=== PATIENT | male | born 1955 | race Caucasian/White ===

== ENCOUNTER 2019-04-18 09:50 | Day surgery (SDC) | payer OTHER ==
--- OUTSIDE RECORDS SUMMARY | 2019-04-18 10:01 | XMS REPORT ---
:1955 Author Organization [facility] Address [address] [place] [address] Care Team Providers Name Role Phone Unavailable Unavailable Unavailable Payers Payer Name Policy Type Policy Number Effective Date Expiration Date Problems This patient has no known problems. Allergies, Adverse Reactions, Alerts Allergy Allergy Status Severity Reaction(s) Onset Inactive Treating Comments Name Type Date Date Clinician No Known DA Active U 2019-01 Allergies -06 00:00:0 0 No Known DA Active U 2019-01 Allergies -04 00:00:0 0 Medications This patient has no known medications. Results Test Description Test Time Test Comments Text Results Atomic Results Result Comments SURGICAL 2019-01-23 RUN DATE: SPECIMENS 12:59:00 01/23/19 [facility] *LIVE* PAGE 1 RUN TIME: 1259 Specimen Inquiry RUN USER: INTERFACE PATIENT: MILADYS SEPULVEDA LOC: NUBIA Cole #: [id number] AGE/SX: 63/M ROOM: RE01/17/19REG DR: Jonny Paredes MD : 53 BED: DIS: STATUS: DEP [facility] TLOC: SPEC #: [id number] RECD: 01/18/19 STATUS: JENI [facility] # : [id number] ITZEL: 01/18/[address] [facility] [address]: Jonny Paredes MD ENTERED: 01/22/19 SP TYPE: SURG SPEC OTHR DR: Mary Goode MD ORDERED: GM LEVEL 4 CODES: [id number] - ESOPHAGUS, NOS COPIES TO: Mary Goode MD [address] [place], [place] [address] Jonny Paredes MD [address] [facility] [id number] [place], [place] [id number] PROCEDURES: GM LEVEL 4 (Incomplete) TISSUES: 1. ESOPHAGUS, NOS - Esophagus, GE junction, bx. 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 FINAL DIAGNOSIS Esophagus, GE junction, bx.: Acute and chronic esophagitis, intestinal metaplasia identified, no definite dysplasia identified; see comment. GROSS AND MICROSCOPIC GROSS EXAMINATION: Received in formalin labeled GE junction biopsy are 2 gongora tissue fragments measuring 0.3 cm submitted in one cassette. MICROSCOPIC EXAMINATION: Sections of the GE junction biopsy reveal portions of glandular mucosa with acute and chronic inflammation and some reactive changes. Intestinal metaplasia is identified with Alcian blue-PAS staining. No dysplasia is identified. There is a small fragment of squamous mucosa with mild reactive changes. (When special stains have been reviewed, the appropriate positive/negative controls have been reviewed and are appropriately positive/negative). * * CONTINUED ON NEXT PAGE RUN DATE: 01/23/19 [facility] *LIVE* PAGE 2 RUN TIME: 1259 Specimen Inquiry RUN USER: INTERFACE SPEC #: [id number] PATIENT: MILADYS SEPULVEDA #[id number] (Continued) POST-OP DIAGNOSIS EGD-GERD, hiatal hernia PRE-OP DIAGNOSIS Dysphagia, colon polyps Signed SIGNATURE ON FILE Dontae Van DO 1259 END OF REPORT GLUBED 2019-01-17 12:48:00 Test Item Value Reference Range Comments GLUBED (test code=GLUBED) 118 MG/DL 70-110 Performed by certified de ionizer operator at [facility] BASIC METABOLIC [id number] 11:06:00 Test Item Value Reference Range Comments SODIUM (test code=NA) 137 mEq/L 134-147 POTASSIUM (test code=K) 4.0 mEq/L 3.4-5.0 CHLORIDE (test code=CL) 103 mEq/L 100-108 CARBON DIOXIDE (test code=CO2) 31 mEq/L 21-33 ANION GAP (test code=GAP) 7 0-20 GLUCOSE (test code=GLU) 145 mg/dL 70-110 BLOOD UREA NITROGEN (test 17 mg/dL 7-18 code=BUN) GLOMERULAR FILTRATION RATE 60.8 80-90 Units of measure=ml/min/1.73 (test code=GFR) m2 CREATININE (test code=CREAT) 1.2 mg/dL 0.6-1.3 CALCIUM (test code=CA) 8.8 mg/dL 8.0-10.5 [id number] 10:12:00 Test Item Value Reference Range Comments GLUBED (test code=GLUBED) 135 MG/DL 70-110 Performed by certified de ionizer operator at [facility] BASIC METABOLIC [id number] 11:49:00 Test Item Value Reference Range Comments SODIUM (test code=NA) 142 mEq/L 134-147 POTASSIUM (test code=K) 4.3 mEq/L 3.4-5.0 CHLORIDE (test code=CL) 104 mEq/L 100-108 CARBON DIOXIDE (test code=CO2) 32 mEq/L 21-33 ANION GAP (test code=GAP) 10 0-20 GLUCOSE (test code=GLU) 174 mg/dL 70-110 BLOOD UREA NITROGEN (test 22 mg/dL 7-18 code=BUN) GLOMERULAR FILTRATION RATE 55.4 80-90 Units of measure=ml/min/1.73 (test code=GFR) m2 CREATININE (test code=CREAT) 1.3 mg/dL 0.6-1.3 CALCIUM (test code=CA) 9.1 mg/dL 8.0-10.5 CBC W/AUTO [id number] 11:32:00 Test Item Value Reference Range Comments WHITE BLOOD CELL (test code=WBC) 8.35 x10 3/uL 4.5-11.0 RED BLOOD CELL (test code=RBC) 5.00 x10 6/uL 4.00-5.60 HEMOGLOBIN (test code=HGB) 16.3 g/dL 12.5-16.9 HEMATOCRIT (test code=HCT) 51.0 % 37.5-50.7 MEAN CELL VOLUME (test code=MCV) 102.0 fL 81.0-99.0 MEAN CELL HGB (test code=MCH) 32.6 pg 27.0-33.0 MEAN CELL HGB CONCETRATION (test code=MCHC) 32.0 g/dL 33.0-37.0 RED CELL DISTRIBUTION WIDTH CV (test code=RDW) 14.2 % 11.5-14.5 RED CELL DISTRIBUTION WIDTH SD (test 53.4 fL 37.0-54.0 code=RDW-SD) PLATELET COUNT (test code=PLT) 178 x10 3/uL 150-400 MEAN PLATELET VOLUME (test code=MPV) 9.6 fL 7.0-9.0 NEUTROPHIL % (test code=NT%) 59.3 % 56.0-77.0 IMMATURE GRANULOCYTE % (test code=IG%) 0.6 % 0.0-2.0 LYMPHOCYTE % (test code=LY%) 27.8 % 14.0-32.0 MONOCYTE % (test code=MO%) 9.3 % 4.8-9.0 EOSINOPHIL % (test code=EO%) 2.2 % 0.3-3.7 BASOPHIL % (test code=BA%) 0.8 % 0.0-2.0 NUCLEATED RBC % (test code=NRBC%) 0.0 % 0-0 NEUTROPHIL # (test code=NT#) 4.95 x10 3/uL 2.0-7.6 IMMATURE GRANULOCYTE # (test code=IG#) 0.05 x10 3/uL 0.00-0.03 LYMPHOCYTE # (test code=LY#) 2.32 x10 3/uL 1.0-3.8 MONOCYTE # (test code=MO#) 0.78 x10 3/uL 0.1-0.8 EOSINOPHIL # (test code=EO#) 0.18 x10 3/uL 0.0-0.2 BASOPHIL # (test code=BA#) 0.07 x10 3/uL 0.0-0.2 NUCLEATED RBC # (test code=NRBC#) 0.00 x10 3/uL 0.0-0.1 MANUAL DIFF REQUIRED (test code=MDIFF) NO - XR CHEST 2 [id number] 11:21:00 FAX: Mary Goode [phone] [place]: St: PRE FAX: Jonny Thomas MD [phone] FAX : Penny Moore N Name: MILADYS SEPULVEDA [facility] Meredith : 1955 Age/S: 63/M [address] [place] [address] Unit #: [id number] Loc: [place] [address] Phys: Penny Moore NP Acct: [id number] Dis Date: Status: PRE [facility] PHONE #: [phone] Exam Date: 02/2019 1112 FAX #: [phone] Reason: PREOP EXAMS: CPT CODE: [id number] XR CHEST 2 V 44746 CLINICAL HISTORY: Preop. K21.9, R13.10, Z 86.010. COMPARISON: None. PA and lateral films of the chest demonstrate pacemaker in place. Heart size is normal. Lung bosch are clear. There is no evidence of pneumonia or congestive failure. Regional skeletal structures are within normal limits. IMPRESSION: No evidence of pneumonia or congestive failure is seen. at 1121 Reported and signed by: Mehrdad Morgan M.D. CC: Mary Goode MD; Jonny Paredes MD; Penny Moore NP Technologist: KEREN Ramey) Trnscrd Date/Time/By: 01/15/2019 (1121) : By: Zari Orig Print D/T: S: 01/15/2019 (5063) PAGE 1 Signed Report
[2019-04-18] MEDS ORDERED: NA CHLORIDE 0.9% 1,000 ML ONE ×2 (10:42→16:19)
--- NOTE | 2019-04-18 10:54 | RAD REPORT ---
EXAM DESCRIPTION: Vel Murray And Tyesha (2 Views)04/18/2019 10:40 am CLINICAL HISTORY: Preop for hernia repair. Esophageal cancer COMPARISON: None FINDINGS: The lungs appear clear of acute infiltrate. The heart is normal size Pacemaker leads in place IMPRESSION: No acute abnormalities displayed
[2019-04-18 11:05] LABS: Absolute Lymphocytes (CBC) 1.9 K/uL (0.7-4.9); Absolute Monocytes 0.8 K/uL (0.1-1.3); Basophils % 0.9 % (0-1.3); Eosinophils % 1.9 % (0-4.4); Hematocrit 47.7 % (39.6-49.0); Lymphocytes % 27.4 % (15.3-44.8); MPV 8.6 fL (7.6-11.3); Monocytes % 11.5 % (3.3-12.3); RBC Red Blood Cell Count 4.77 M/uL (4.33-5.43)
[2019-04-18] MEDS ORDERED: CEFAZOLIN/SWI 1gm 1 GM/10 ML SYR ONE (11:05)
[2019-04-18 11:29] LABS: Potassium 4.6 mmol/L (3.5-5.1)
[2019-04-18] MEDS ORDERED: PROPOFOL 200 MG/20 ML VIAL IV ONE (14:46)
[2019-04-18] MEDS ORDERED: MIDAZOLAM HCL 2 MG/2 ML INJ ONE (14:47)
[2019-04-18] MEDS ORDERED: LIDOCAINE 1% MPF 5 ML VIAL ONE (14:47)
[2019-04-18] MEDS ORDERED: FENTANYL CITR 100 MCG/2 ML ONE (14:47)
[2019-04-18] MEDS ORDERED: Phenylephrine HCl 10 MG/ML 1 ML VIAL ONE (15:53)
[2019-04-18] MEDS ORDERED: NS 0.9% VIAL 10 ML ONE (15:54)
--- NOTE | 2019-04-18 15:57 | EKG ---
Test Date: 2019-04-18 Test Time: 10:28:43 [place] Stitcher: ZAHIDA MEASUREMENT RESULTS: Intervals: Rate: 66 OK: 174 QRSD: 168 QT: 464 QTc: 486 [place]: P: 34 OK: 174 QRS: 243 T: 29 INTERPRETIVE STATEMENTS: Atrial-sensed ventricular-paced rhythm tracking sinus rhtyhm No previous ECG available for comparison Electronically Signed On 04-18-19 15:56:05 CDT by Jossue Mcleod
[2019-04-18] MEDS ORDERED: ONDANSETRON 4 MG/2 ML VIAL ONE (16:14)
[2019-04-18] MEDS ORDERED: KETOROLAC 30 MG/ML INJ ONE (16:14)
--- NOTE | 2019-04-18 16:16 | P.BOP ---
Preoperative diagnosis: tender recurrent left inguinal hernia Postoperative diagnosis: same Primary procedure: Open repair of tender recurrent left inguinal hernia with mesh Medical Director/Head Team Physician: SARIKA LUEVANO (NEWSPAPER ILLUSTRATOR) Estimated blood loss: <10cc Specimen: none Findings: direct hernia Anesthesia: General Complications: None Transferred to: Recovery Room Condition: Good
[2019-04-18] MEDS ORDERED: CODEINE 30MG/APAP 300MG TAB ONE (17:41)
--- NOTE | 2019-04-19 03:55 | OP ---
Surgeon: Handy Salgado MD Diagnosis: Recurrent left inguinal hernia, tender. Procedures: Open repair of recurrent left inguinal hernia with mesh. Disposition: Home. Activity: As tolerated. No heavy lifting. Followup: Follow up in my office in 1 week, call for appointment [phone]. Keep the area dry for 48 hours, then may shower. Keep Steri-Strips intact. Medications: Include Tylenol No. 3 q.4 hours p.r.n. pain and Bactrim DS p.o. b.i.d. DONALD/DEMI Voice ID: [id number] Report ID: [id number]
--- NOTE | 2019-04-19 03:55 | OP ---
Date of Procedure: 04/18/2019 Surgeon: Handy Salgado MD Computerized Mill Recorder: Janeth Meraz. Preoperative Diagnosis: Tender recurrent left inguinal hernia. Postoperative Diagnosis: Tender recurrent left inguinal hernia. Procedure: Open repair of a tender recurrent left inguinal hernia with mesh. Finding: Direct hernia. Anesthesia: General plus local. Indications: This is a case of a 64-year-old patient, comes to us with a recurrent left inguinal her josie. He had repair a long time ago at another institution. He came back with tenderness. The benef its, alternatives, and risks of repair were fully explained to the patient which include but are not limited to infection, bleeding, damage to adjacent structures, anesthesia complication, recurrence, M I, and even . He also understands this might not relieve the symptoms and he might need more th an one surgical intervention. He understands the pros and cons of mesh placement; it was explained t o him in details. He was allowed to ask questions and answered to his satisfaction to the point that he did allow me to use mesh. Description Of Procedure: The patient was brought to the operating room, placed in supine position. Anesthesia was done without complication. Inguinal region was prepped and draped in a usual sterile fashion. An incision was made over the area. Alondra's fascia was encountered, opened under direct vision. External oblique aponeurosis was opened in the direction of the fibers to connect to the sup erficial inguinal ring. Ilioinguinal nerve and iliohypogastric nerve were protected behind external oblique aponeurosis. Quyen was placed around the spermatic cord. A direct hernia defect was seen near the inguinal canal. The hernia sac was imbricated. Mesh plug was placed over the area and secu red in place with VersaTack. After that, a mesh sheet was placed in the floor of the canal, securing that to the pubic tubercle, shelving edge of inguinal ligament, transversalis fascia, and tail was l ooped around the spermatic cord without strangulation. There is an indirect sac seen the after inspe cting the spermatic cord structures. That was left intact. At that moment, I proceeded then to brin g the inguinal nerve and iliohypogastric nerve back into the inguinal canal. Reconstructed the super ficial inguinal ring and closed the external oblique aponeurosis making sure there is no strap entrap ment of the nerve. The Alondra's fascia was closed with 3-0 chromic and the skin in a subcuticular fa shion with 4-0 PDS with Steri-Strips on top. Sponge count and instrument counts were correct. The p atient tolerated the procedure well. The patient was sent to recovery in stable condition. At the e nd of the case, the testicles were in the scrotum. BHANU Voice ID: [id number] Report ID: [id number]
== END 2019-04-18 18:35 | disposition home or self-care (01) ==
LOC: OR 09:50
PROVIDERS: ATTEND Surgery
PROC: 0YU60JZ Supplement Left Inguinal Region with Synthetic Substitute, Open Approach (ICD-10-PCS; principal; 2019-04-18 14:00)
DX: K40.91 Unilateral inguinal hernia, without obstruction or gangrene, recurrent (principal); E11.9 Type 2 diabetes mellitus without complications; E78.00 Pure hypercholesterolemia, unspecified; I11.9 Hypertensive heart disease without heart failure; Z79.84 Long term (current) use of oral hypoglycemic drugs; Z79.82 Long term (current) use of aspirin; Z79.899 Other long term (current) drug therapy
CPT/HCPCS: 49520; 93005; 85025; 80048; 36415; 82962; 71046; J2704; J2370; J2250; J3010; J0690; J7030 ×2; J2405

== ENCOUNTER 2023-01-07 02:48 | Observation (INO) | payer OTHER ==
--- OUTSIDE RECORDS SUMMARY | 2023-01-07 02:52 | XMS REPORT | Continuity of Care Document ---
:1955 Author Organization [facility] t Address [address] [place] [address] Care Team Providers Name Role Phone Mary Goode MD Primary Care Physician Miladys Bocanegra Attending Clinician Unavailable DARLENE CURTIS Attending Clinician Unavailable DUSTIN ANDERSON Attending Clinician Unavailable GRETCHEN ROCHE Attending Clinician Unavailable Mary Goode Admitting Clinician Unavailable Payers Payer Name Policy Type Policy Number Effective Date Expiration Date S ource Problems Condition Condition Condition Status Onset Resolution Last Treating Co mments Source Name Details Category Date Date Treatment Clinician Date Epistaxis Epistaxis Disease Active 2020-11 [facility] 11-22 [facility]: [facility]osp[facility] 00 l Erythrocyt Erythrocyt Disease Active M ethodi osis osis 06-10 00:00: Hospita 00 l Thrombocyt Thrombocyt Disease Active M ethodi openia openia 06-10 00:00: Hospita 00 l Allergies, Adverse Reactions, Alerts Allergy Allergy Status Severity Reaction(s) Onset Inactive Treating Comm ents Source Name Type Date Date Clinician No Known DA Active U [facility] 01-17 [facility] 00:00: d 00 [facility] No Known DA Active U [facility] 01-17 [facility] d 00 [facility] No Known DA Active U 2019-0 [facility] Allergie 3-04 Clear s 00:00: Doug[place] 00 [facility] Social History Social Habit Start Date Stop Date Quantity Comments Source Sex Assigned At [birth year] [facility] 00:00:00 00:00:00 Smoking Status Start Date Stop Date Source Tobacco smoking consumption unknown [facility] Medications Ordered Filled Start Stop Current Ordering Indication Dosage Frequency Signature Comments Components Source Medication Medication Date Date Medication? Clinician (SIG) Name Name potassium 2020-11 Yes 20meq Take 20 Meth ankur chloride -[address] (KLOR-CON) 08:37: mouth Hospit a 20 mEq 51 once. l packet carvedilol 2020-11 Yes 20mg QD Take 20 mg M ethodi CR (COREG 11-[address] CR) 20 MG 08:37: daily. Hospit a 24 hr 51 l capsule prasugreL 2020-11 Yes 10mg QD Take 10 mg Me thodi (EFFIENT) 11-[address] 10 mg 08:37: daily. Hospita tablet 51 l rosuvastati 2020-11 Yes 20mg QD Take 20 mg Methodi n (CRESTOR) 11-[address] 20 mg 08:37: daily. Hospita tablet 51 l sacubitriL- 2020-11 Yes Q.5D Take by [facility] valsartan 11-[address] (Entresto) 08:37: (two) Hospit a 24-26 mg 51 times a l tablet per day. tablet aspirin 2020-11 Yes 81mg QD Take 81 mg Meth ankur (ECOTRIN) 11-[address] 81 MG 08:37: daily. Hospita enteric 51 l coated tablet dapaglifloz 2020-11 Yes QD Take by [facility] in 11-[address] (Farxiga) 08:37: daily. Hospit a 10 mg 51 l tablet ezetimibe 2020-11 Yes 10mg QD Take 10 mg Me thodi (ZETIA) 10 11-[address] mg tablet 08:37: daily. Hospit a 51 l diosmin 2020-11 Yes Take by Jaime complex 11-[address] no.1 08:37: Hospita (Vasculera) 51 l 630 mg tablet allopurinoL 2020-11 Yes 300mg QD Take 300 M ethodi (ZYLOPRIM) 1-[address] 300 MG 08:37: mouth Hospita tablet 51 daily. l esomeprazol 2020-11 Yes 40mg QD Take 40 mg Methodi e (NexIUM) 1-[address] 40 MG 08:37: daily Hospita capsule 51 before l breakfast. SITagliptin 2020-11 Yes 100mg QD Take 100 M ethodi (JANUVIA) 1-[address] 100 MG 08:37: mouth Hospita tablet 51 daily. l furosemide Yes 20mg QD Take 20 mg M ethodi (LASIX) 20 07-[address] mg tablet 08:46: daily. Hospit a 49 l Immunizations Ordered Immunization Filled Immunization Date Status Commen ts Source Name Name ED COVID-19 MRNA 2021-01-12 Completed [facility] VACCINATION 00:00:00 [facility] SAMMIA COVID-19 MRNA 2020-12-15 Completed [facility] VACCINATION 00:00:00 [facility] Pneumococcal 2018-11-14 Completed [facility] Polysaccharide 00:00:00 [facility] Pneumococcal 2017-11-14 Completed [facility] Conjugate 13-Valent 00:00:00 [facility] abbie Zoster Vaccine 2017-01-12 Completed [facility] Recombinant 00:00:00 [facility] Zoster Vaccine 2016-11-14 Completed [facility] Recombinant 00:00:00 Hospital Procedures This patient has no known procedures. Plan of Care Planned Activity Planned Date Details Comments Source Future Scheduled 2022-10-29 COLONOSCOPY SCREENING [facility] Test 22:14:29 [code = COLONOSCOPY SCREENING] Future Scheduled 2022-10-29 COVID-19 VACCINE (3 - [facility] Test 22:14:29 Booster for Moderna series) [code = COVID-19 VACCINE (3 - Booster for Moderna series)] Future Scheduled 2022-10-29 [facility]FLU[facility]ACCINE [facility] 22:14:29 [code = INFLUENZA VACCINE] Encounters Start End Encounter Admission Attending Care Care Encounter Source Date/Time Date/Time Type Type Clinicians Facility Department ID 2020-12-16 Inpatient EL Daljit, [facility] ENDO [id number] [facility] 14:00:00 Miladys Cobos [facility] [place] 2020-09-12 Inpatient EL Daljit, [facility] [id number] [facility] 10:00:00 Miladys Jones [facility] [place] 2021-09-22 2021-09-22 Outpatient EVER, [facility] [id number] [place] 00:00:00 00:00:00 KELTY 306 Method [facility] 2021-07-21 2021-07-21 Outpatient CURTIS, [facility] [id number] [place] 00:00:00 00:00:00 KELTY 909 Method i 2021-07-21 2021-07-21 Outpatient JUSTIN [facility] [id number] [place] 00:00:00 00:00:00 DUSTIN 758 Method i 2021-07-14 2021-07-14 Outpatient EVER, [facility] [id number] [place] 00:00:00 00:00:00 KELTY 426 Method i 2021-06-10 2021-06-10 Outpatient EVER, [facility] [id number] [place] 00:00:00 00:00:00 KELTY 993 Method i 2020-02-15 2020-02-15 Outpatient GRETCHEN ROCHE [facility] [id number] [place] 00:00:00 00:00:00 071 Method i 2020-02-15 2020-02-15 Outpatient GRETCHEN ROCHE [facility] [id number] [place] 00:00:00 00:00:00 961 Method i Results Test Description Test Time Test Comments Results Result Comments Source SURG 2020-12-23 16:03:00 Test Item Value Reference Range Interpretation Jhoana powell SURG RUN (test DATE: 12/23/20 SATHISH romero - LYNNE PAGE 1 RUN TIME: 1603 Specimen Inquiry RUN USER: code = INTERFACE SURG) PATIE NT: MILADYS SEPULVEDA LOC: CHARLA U #: [id number] AGE/SX: 65/M ROOM: RE12/17/20REG DR: Aamir Bocanegra am, MD : 51 BED: DIS: STATUS: [place] [facility] [place]: SPEC #: [id number] RECD: STATUS: JENI NORRIS #: [id number] ITZEL: 12/17/201331 SUBM DR: Miladys Bocanegra MD ENTERED: 12/17/20 SP TYPE: SURG OTHR DR: Mary Goode MD ORDERED: SURG PATH LVL 02/17 COPIES TO: Mary Goode MD [address] [place] [id number] Miladys Bocanegra MD [address] [place] [address] HISTOLOGY: TISSUE ID BLK PCS NIKI LEV PROCEDURE DISPOSITION ____ ___ ___ ___ ___ STOMACH, NOS A 1 2 STOMACH, NOS B 1 2 ESOPHAGUS, NOS C 1 2 ASCENDING COLON D 1 2 CECUM, NOS E 1 2 DESCENDING COLO F 1 2 PROCEDURES: SURG PATH LVL 4 (12/17/20) TISSUES: A. STOMACH, NOS - GASTRIC POLYP B. STOMACH, NOS - GASTRIC BIOPSY C. ESOPHAGUS, NOS - ESOPHAGEAL BIOPSY D. ASCENDING COLON - ASCENDING COLON POLYP E. CECUM, NOS - CECAL COLON POLYP F. DESCEND ING COLON - DESCENDING COLON POLYPS CLINICAL HISTORY HISTORY COLON POLYPS, MALIGNANT NEOPLASM E SOPHAGUS CPT CODES CPT CODE(S): 27672W5 , , , , , , CONTINUED ON NEXT PAGE RUN DATE: 12/23/20 [facility] Manuel Reyes [facility] - LAB PAGE 2 RUN TIME: 1603 Specimen Inquiry RUN USER: INTERFACE SPEC #: [id number] PATIENT: MILADYS SEPULVEDA #[id number] (Continued) ------ FINAL DIAGNOSIS A. St macias, polypectomy: GASTRIC HYPERPLASTIC POLYP B. Stomach, biopsy: FUNDIC GLAND POLYP C. Ruby cameron, biopsy: MILD CHRONIC CARDITIS NEGATIVE FOR INTESTINAL METAPLASIA, DYSPLASIA, OR MA LIGNANCY D. Colon, ascending, polypectomy: TUBULAR ADENOMA E. Colon, cecum, polypectomy: TUBULAR ADENOMA F. Colon, descending, polypectomy: HYPERPLASTIC POLYP GROSS DESCRIPTION A. Gastric polyp . Received in formalin is a gongora tissue fragment, 0.2 cm, all as A. B. Gastric biopsy. Received in formalin are two gongora tissue fragments, 0.5 cm each, all as B. C. Esophageal biopsy. Received in formalin are two gongora tissue fragments, 0.2 cm each, all as C. D. Ascending colon polyp. Recei magno in formalin is a segment of soft gongora polypoid tissue, 0.5 x 0.3 x 0.3 cm. The polyp is marked with ink, bisected and submitted as D. E. Cecal colon polyp. Received in formalin are three gongora ti ssue fragments, <0.1 - 0.3 cm, all as E. F. Descending colon polyps. Received in formalin is a ta n tissue fragment, 0.3 cm, all as F. bk/nr Grossing performed at [facility] Pathology, [address] [place] [address], [address], [place] [address]. Brick Washer: Sarkis Wilson M.D. CONTINUED ON NEXT PAGE RUN DATE: 12/23/20 [facility] PAGE 3 RUN TIME: 1603 Specimen Inquiry RUN USER: INTERFACE SPEC #: [facility]:[id number] PATIENT: MILADYS SEPULVEDA #[id number] (Continued) ------ MICROSCOPIC DESCRIPTI ON A. Gastric polyp. Sections demonstrate gastric mucosa with dilated glands and associated slight increased inflammation in the expanded lamina propria. These findings are consistent with a gastric hyperplastic polyp. No dysplasia or malignancy is identified. B. Gastric biops y. Sections demonstrate gastric mucosa with dilated glands and prominent parietal cells. No dysplasia or malignancy is identified. These findings are consistent with a fundic gland polyp. C . Esophageal biopsy. Sections demonstrate gastric cardia type mucosa with mild chronic inflammati on. No squamous mucosa present for evaluation. No dysplasia or malignancy is seen. No evide nce of intestinal metaplasia is seen. D. Ascending colon polyp. Sections demonstrate colonic mucosa with glands demonstrate crowded, hyperchromatic, pseudostratified nuclei. No evidence of high-grade dysplasia or malignancy is seen. E. Cecal colon polyp. Sections demons trate colonic mucosa with glands demonstrating crowded, hyperchromatic, pseudostrati fied nuclei. No evidence of high-grade dysplasia or malignancy is seen. F. Descending colon po lyps. Sections demonstrate colonic mucosa with glands demonstrating increased mucin and a fredy te architecture. No hyperchromasia and nuclear crowding is present. No dysplasia or malignancy is seen. Signed SIGNATURE ON FILE Kevin Diaz 12/23/20 160 3 END OF REPORT GLUCOSE BEDSIDE [id number] 11:37:00 Test Item Value Reference Range Interpretation Comments GLUCOSE BEDSIDE TESTING (test code 118 mg/dL 70-110 H = GLUBED) BASIC METABOLIC [id number] 15:30:00 Test Item Value Reference Range Interpretation Comments SODIUM (test code = NA) 137 mmol/L 134-147 N POTASSIUM (test code = K) 4.4 mmol/L 3.4-5.0 N CHLORIDE (test code = CL) 102 mmol/L 100-108 N CARBON DIOXIDE (test code = CO2) 34 mmol/L 21-32 H ANION GAP (test code = GAP) 1.0 GAP calc 4.0-15.0 L GLUCOSE (test code = GLU) 108 MG/DL 70-110 N BLOOD UREA NITROGEN (test code = 24 MG/DL 7-18 H BUN) GLOMERULAR FILTRATION RATE (test 59 estGFR >60 L code = GFR) CREATININE (test code = CREAT) 1.3 MG/DL 0.8-1.3 N CALCIUM (test code = CA) 9.4 MG/DL 8.5-10.1 N COVID 19 INHOUSE [id number] 15:28:00 Test Item Value Reference Range Interpretation Comments COVID 19 INHOUSE AG NEGATIVE Negative Per manu facturer, (test code = negative result s should [id number]) be treated aspr esumptive and, if inconsi stent with clinical signs andsymptoms or necessary for patient man agement, should betested with an alternative mol ecular assay. Negative resultsdo not preclude SA RS-CoV-2 infection and s hould not be usedas the s ole basis for patient man agement decisions. Nega tive results should be considered in t he context of apatient's r ecent exposures, hist ory, presence of cli nicalsigns and symptoms co nsistent with COVID-19. PROTHROMBIN [id number] 15:21:00 Test Item Value Reference Range Interpretation Comments PT PATIENT (test code = PTP) 11.6 SECONDS 9.3-12.9 N INTERNATIONAL NORMAL RATIO 1.03 INR Unit 0.8-1.2 N (test code = INR) THROMBOPLASTIN TIME [id number] 15:21:00 Test Item Value Reference Range Interpretation Comments THROMBOPLASTIN TIME PARTIAL 42.7 SECONDS 26-35 H (test code = PTT) CBC W/AUTO [id number] 15:13:00 Test Item Value Reference Range Interpretation Comments WHITE BLOOD CELL (test code = 7.9 K/mm3 3.5-11.0 N WBC) RED BLOOD CELL (test code = 5.70 M/mm3 4.70-6.10 N RBC) HEMOGLOBIN (test code = HGB) 18.2 G/DL 12.3-15.9 H HEMATOCRIT (test code = HCT) 56.4 % 35.8-46.7 H MEAN CELL VOLUME (test code = 98.9 Fl 86.3-98.9 N MCV) MEAN CELL HGB (test code = MCH) 31.9 pg 28.9-34.4 N MEAN CELL HGB CONCETRATION 32.3 G/DL 32.1-34.5 N (test code = MCHC) RED CELL DISTRIBUTION WIDTH 13.7 SD 11.5-14.5 N (test code = RDW) PLATELET COUNT (test code = 161 K/mm3 150-450 N PLT) MEAN PLATELET VOLUME (test code 10.30 fL 7.0-9.6 H = MPV) NEUTROPHIL % (test code = NT%) 56.9 % 40-76 N IMMATURE GRANULOCYTE % (test 0.3 % 0.0-5.0 N code = IG%) LYMPHOCYTE % (test code = LY%) 29.4 % 20.5-51.1 N MONOCYTE % (test code = MO%) 11.5 % 1.7-9.3 H EOSINOPHIL % (test code = EO%) 1.3 % 0.0-6.0 N BASOPHIL % (test code = BA%) 0.6 % 0.0-2.0 N NUCLEATED RBC % (test code = 0.0 /100WBC% 0.0-1.0 N NRBC%) NEUTROPHIL # (test code = NT#) 4.5 K/mm3 1.8-7.6 N IMMATURE GRANULOCYTE # (test 0.02 x10 3/uL 0.00-0.03 N code = IG#) LYMPHOCYTE # (test code = LY#) 2.3 K/mm3 0.6-3.0 N MONOCYTE # (test code = MO#) 0.9 K/mm3 0.2-1.5 N EOSINOPHIL # (test code = EO#) 0.1 K/mm3 0.0-0.4 N BASOPHIL # (test code = BA#) 0.1 K/mm3 0.0-0.2 N NUCLEATED RBC # (test code = 0.0 K/mm3 0.00-0.01 N NRBC#) MANUAL DIFF REQUIRED (test code NO DIFF/SCN CRITERIA = [place]) SURGICAL [id number] 12:59:00 RUN DATE: 01/23/19 [facility] *LIVE* PAGE 1 RUN TIME: 1259 Specimen Inquiry RUN USER: INTERFACE --PATIENT: MILADYS SEPULVEDA LOC: NUBIA #: [id number] AGE/SX: 63/M ROOM: RE01/17/19[facility] DR: Jonny Paredes MD : 51 BED: DIS: STATUS[place] [facility] [place]: SPEC #: [id number] RECD: 01/18/19 STATUS: JENI NORRIS #: [id number] ITZEL: 01/18/19 [facility] DR: Jonny Paredes MD ENTERED: 01/22/19-1650 SP TYPE: SURG SPEC OTHR DR: Mary Goode MD ORDERED: GM LEVEL 4 CODES: [id number] - ESOPHAGUS, NOS COPIES TO: Mary Goode MD [address] [place] [address] Jonny Paredes MD [address] [facility] [address] [place], [place] [address] PROCEDURES: GM LEVEL 4 (Incomplete) TISSUES: 1. ESOPHAGUS, NOS - Esophagus, GE junction, bx. 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 [...] changes. Intestinal metaplasia is identified with Alcian blue- PAS staining.No dysplasia is identified. There is a small fragment of squamous mucosa with mild reactive changes. (When special stains have been reviewed, the appropriate positive/negative controls have been reviewed and are appropriately positive/negative). CONTINUED ON NEXT PAGE RUN DATE: 01/23/19 [facility] *LIVE* PAGE 2 RUN TIME: 1259 Specimen Inquiry RUN USER: INTERFACE SPEC #: [id number] PATIENT: MILADYS SEPULVEDA #[id number] (Continued) POST-OP DIAGNOSIS EGD-GERD, hiatal hernia PRE-OP DIAGNOSIS Dysphagia, colon polyp s SignedSIGNATURE ON FILE Dontae Van Samm PACHECO 01/23/19 1259 END OF REPORT [id number] 12:48:00 Test Item Value Reference Range Interpretation Comments GLUBED (test code = 118 MG/DL 70-110 H Performe d by certified GLUBED) activated sludge operator at [facility] BASIC METABOLIC [id number] 11:06:00 Test Item Value Reference Range Interpretation Comments SODIUM (test code = NA) 137 mEq/L 134-147 N POTASSIUM (test code = 4.0 mEq/L 3.4-5.0 N K) CHLORIDE (test code = 103 mEq/L 100-108 N CL) CARBON DIOXIDE (test 31 mEq/L 21-33 N code = CO2) ANION GAP (test code = 7 0-20 N GAP) GLUCOSE (test code = 145 mg/dL 70-110 H GLU) BLOOD UREA NITROGEN 17 mg/dL 7-18 N (test code = BUN) GLOMERULAR FILTRATION 60.8 80-90 L Units of measure = RATE (test code = GFR) ml/mi n/1.73 m2 CREATININE (test code = 1.2 mg/dL 0.6-1.3 N CREAT) CALCIUM (test code = 8.8 mg/dL 8.0-10.5 N CA) [id number] 10:12:00 Test Item Value Reference Range Interpretation Comments GLUBED (test code = 135 MG/DL 70-110 H Performe d by certified GLUBED) activated sludge operator at [facility] BASIC METABOLIC [id number] 11:49:00 Test Item Value Reference Range Interpretation Comments SODIUM (test code = NA) 142 mEq/L 134-147 N POTASSIUM (test code = 4.3 mEq/L 3.4-5.0 N K) CHLORIDE (test code = 104 mEq/L 100-108 N CL) CARBON DIOXIDE (test 32 mEq/L 21-33 N code = CO2) ANION GAP (test code = 10 0-20 N GAP) GLUCOSE (test code = 174 mg/dL 70-110 H GLU) BLOOD UREA NITROGEN 22 mg/dL 7-18 H (test code = BUN) GLOMERULAR FILTRATION 55.4 80-90 L Units of measure = RATE (test code = GFR) ml/mi n/1.73 m2 CREATININE (test code = 1.3 mg/dL 0.6-1.3 N CREAT) CALCIUM (test code = 9.1 mg/dL 8.0-10.5 N CA) CBC W/AUTO [id number] 11:32:00 Test Item Value Reference Range Interpretation Comments WHITE BLOOD CELL (test code = 8.35 x10 3/uL 4.5-11.0 N WBC) RED BLOOD CELL (test code = 5.00 x10 6/uL 4.00-5.60 N RBC) HEMOGLOBIN (test code = HGB) 16.3 g/dL 12.5-16.9 N HEMATOCRIT (test code = HCT) 51.0 % 37.5-50.7 H MEAN CELL VOLUME (test code = 102.0 fL 81.0-99.0 H MCV) MEAN CELL HGB (test code = MCH) 32.6 pg 27.0-33.0 N MEAN CELL HGB CONCETRATION 32.0 g/dL 33.0-37.0 L (test code = MCHC) RED CELL DISTRIBUTION WIDTH CV 14.2 % 11.5-14.5 N (test code = RDW) RED CELL DISTRIBUTION WIDTH SD 53.4 fL 37.0-54.0 N (test code = RDW-SD) PLATELET COUNT (test code = 178 x10 3/uL 150-400 N PLT) MEAN PLATELET VOLUME (test code 9.6 fL 7.0-9.0 H = MPV) NEUTROPHIL % (test code = NT%) 59.3 % 56.0-77.0 N IMMATURE GRANULOCYTE % (test 0.6 % 0.0-2.0 N code = IG%) LYMPHOCYTE % (test code = LY%) 27.8 % 14.0-32.0 N MONOCYTE % (test code = MO%) 9.3 % 4.8-9.0 H EOSINOPHIL % (test code = EO%) 2.2 % 0.3-3.7 N BASOPHIL % (test code = BA%) 0.8 % 0.0-2.0 N NUCLEATED RBC % (test code = 0.0 % 0-0 N NRBC%) NEUTROPHIL # (test code = NT#) 4.95 x10 3/uL 2.0-7.6 N IMMATURE GRANULOCYTE # (test 0.05 x10 3/uL 0.00-0.03 H code = IG#) LYMPHOCYTE # (test code = LY#) 2.32 x10 3/uL 1.0-3.8 N MONOCYTE # (test code = MO#) 0.78 x10 3/uL 0.1-0.8 N EOSINOPHIL # (test code = EO#) 0.18 x10 3/uL 0.0-0.2 N BASOPHIL # (test code = BA#) 0.07 x10 3/uL 0.0-0.2 N NUCLEATED RBC # (test code = 0.00 x10 3/uL 0.0-0.1 N NRBC#) MANUAL DIFF REQUIRED (test code NO = MDIFF) - XR CHEST 2 [id number] 11:21:00 FAX: Mary Goode [phone] Bulger: St: PRE FAX: Jonny Thomas MD [phone] FAX: Penny Landon Name: MILADYS SEPULVEDA [facility] [place] : 1955 Age/S: 63/M [address] [place] [address] Unit #: [id number] Loc: [place] [address] Phys: Penny Moore NP Acct: [id number] Dis Date: Status: PRE SDC PHONE #: [phone] Exam Date: 01/15/2019 1112 FAX #: [phone] Reason: PREOP EXAMS: CPT CODE: [id number] XR CHEST 2 V 03486 CLINICAL HISTORY: Preop. K21.9, R13.10, Z 86.010. [...] MD; Penny Moore NP Technologist: KEREN Ramey) Trnshikha Date/Time/By: 01/15/2019 (1121) : By: Zari Silva Print D/T: S: 01/15/2019 (1175) PAGE1 Signed Report
[2023-01-07] MEDS ORDERED: NA CHLORIDE 0.9% 500 ML ONE ×2 (02:57→06:15)
[2023-01-07 03:21] LABS: Absolute Lymphocytes (CBC) 1.2 K/uL (0.7-4.9); Hematocrit 33.9 % (39.6-49.0); Lymphocytes % 20.2 % (15.3-44.8); MCV 73.2 fL (80-100); MPV 7.7 fL (7.6-11.3); RBC Red Blood Cell Count 4.64 M/uL (4.33-5.43)
[2023-01-07 03:24] LABS: Protime INR 1.13
[2023-01-07 03:36] LABS: Urine Blood Negative (Negative); Urine Glucose 2+ (Negative); Urine Protein Negative (Negative); Urine Specific Gravity 1.015 (1.005-1.030)
[2023-01-07 03:39] LABS: Albumin 3.2 g/dL (3.4-5.0); Bilirubin Direct 0.4 mg/dL (0-0.2); Magnesium 2.1 mg/dL (1.6-2.4); Potassium 4.1 mmol/L (3.5-5.1); Protein, Total 5.9 g/dL (6.4-8.2)
[2023-01-07 04:23] LABS: Barbiturates NEGATIVE (NEGATIVE); Benzodiazepines NEGATIVE (NEGATIVE); Cocaine NEGATIVE (NEGATIVE); METHAMPHETAM NEGATIVE (NEGATIVE); Methadone NEGATIVE (NEGATIVE); Opiates NEGATIVE (NEGATIVE); Phencyclidine NEGATIVE (NEGATIVE); THC Cannibis POSITIVE (NEGATIVE)
--- NOTE | 2023-01-07 07:32 | ER ---
Nurse's Notes [facility] Name: Musa Hui Age: 67 yrs Sex: Male : 1955 Arrival Date: 01/07/2023 Time: 02:49 Bed 2 Private MD: Diagnosis: Altered mental status, unspecified;Slurred speech;Muscle weakness (generalized) Presentation: 01/07 02:50 Chief complaint: EMS states: patient's called AMS. PT's reports that he took kd3 some edibles and had been very slow to respond. Pt O2 saturations low on arrival. Ebola Screen: No symptoms or risks identified at this time. Initial Sepsis Screen: Does the patient meet any 2 criteria? No. Patient's initial sepsis screen is negative. Does the patient have a suspected source of infection? No. Patient's initial sepsis screen is negative. Risk Assessment: Do you want to hurt yourself or someone else? Patient reports no desire to harm self or others. Onset of symptoms was January 07, 2023. 02:50 Method Of Arrival: EMS: [facility] kd3 02:50 Acuity: [place] 3 kd3 07:38 Coronavirus screen: Vaccine status: Patient reports receiving the 2nd dose of the covid ll1 vaccine. Client denies travel out of the [place] in the last 14 days. At this time, the client does not indicate any symptoms associated with coronavirus-19. Triage Assessment: 02:53 General: Appears in no apparent distress. Behavior is calm, cooperative. Pain: Denies kd3 pain. Historical: - Allergies: 02:53 No Known Allergies; kd3 - PMHx: 02:53 pacemaker; stents; kd3 - Immunization history:: Adult Immunizations up to date. - Social history:: Smoking status: unknown. - Family history:: not pertinent. - Hospitalizations: : No recent hospitalization is reported. Screenin:13 [facility] ED Fall Risk Assessment (Adult) Confusion or Disorientation Yes (5 pts) as6 Score/Fall Risk Level 3 or more points = High Risk. Abuse screen: Denies threats or abuse. Denies injuries from another. Nutritional screening: No deficits noted. Tuberculosis screening: No symptoms or risk factors identified. Assessment: 03:00 General: Appears in no apparent distress. Behavior is calm, cooperative. General: as6 Behavior is drowsy. Pain: Denies pain. Neuro: Neuro: Level of Consciousness is obeys commands, drowsy, able to arouse . 06:20 Reassessment: Patient appears in no apparent distress at this time. Patient and/or as6 family updated on plan of care and expected duration. Pain level reassessed. 07:00 Reassessment: Report received from machinist 2nd shift RN. ll1 07:20 Reassessment: Dr. Dukes at . ll1 Vital Signs: 02:50 BP 96 / 67; Pulse 85; Resp 20; Temp 98.2(TE); Pulse Ox 95% on R/A; Weight 95.25 kg; kd3 Height 6 ft. 2 in. (187.96 cm); Pain 0/10; 04:13 BP 90 / 48; Pulse 78; Resp 21 S; Pulse Ox 93% on R/A; as6 05:00 BP 90 / 52; Pulse 77; Resp 16 S; Pulse Ox 93% on R/A; as6 06:20 BP 94 / 53; Pulse 75; Resp 15 S; Pulse Ox 95% on R/A; as6 06:51 BP 94 / 55; Pulse 75; Resp 17 S; Pulse Ox 96% on R/A; as6 07:38 BP 106 / 68; Pulse 71; Resp 16; Pulse Ox 98% ; ll1 02:50 Body Mass Index 26.96 (95.25 kg, 187.96 cm) kd3 ED Course: 02:49 Patient arrived in ED. sb4 02:49 Hunter Dukes MD is Attending Physician. rn 02:50 Charlee Tomlinson, AVTAR is Primary Nurse. kd3 02:53 Triage completed. kd3 02:54 Arm band placed on. kd3 03:09 Chest Single View XRAY In Process Unspecified. EDMS 03:46 CT Head Brain wo Cont In Process Unspecified. EDMS 04:13 Bed in low position. Call light in reach. Side rails up X2. Adult w/ patient. as6 06:10 Maintain EMS IV. Dressing intact. Good blood return noted. Site clean \T\ dry. Gauge \T\ as 6 site: 18G left FA. 07:30 Maneul Castaneda is Hospitalizing Provider. rn 07:38 No provider procedures requiring assistance completed. Patient admitted, IV remains in ll1 place. 08:31 Primary Nurse role handed off by Charlee Tomlinson RN ll1 08:31 Maximus Portillo, RN is Primary Nurse. ll1 Administered Medications: 03:02 Drug: NS 0.9% 500 ml Route: IV; Rate: bolus; Site: left forearm; as6 07:39 Follow up: IV Status: Completed infusion; IV Intake: 500ml ll1 06:14 Drug: NS 0.9% 500 ml Route: IV; Rate: bolus; Site: left forearm; kd3 07:39 Follow up: Response: No adverse reaction; IV Status: Completed infusion; IV Intake: ll1 500ml 08:26 Not Given (Patient Refused): Aspirin Chewable Tablet 324 mg PO once; 81 mg tablets x 4 ll1 Medication: 06:13 VIS not applicable for this client. as6 Intake: 07:39 IV: 500ml; Total: 500ml. ll1 07:39 IV: 500ml; Total: 1000ml. ll1 Outcome: 07:31 Decision to Hospitalize by Provider. rn 07:38 Admitted to ER Hold. Please see [facility] for further documentation. ll1 07:38 Condition: stable 07:38 Instructed on the need for admit. 15:48 Patient left the ED. 1 Signatures: Dispatcher [employer] EDMS Hunter Dukes MD MD rn Lewis, Lynsay, RN RN ll1 Jt Hendrickson RN RN as6 Charlee Tomlinson, AVTAR RN kd3 Brittney Santamaria, PABartolo PABartolo sb4
--- NOTE | 2023-01-07 07:32 | EDPHYS ---
Physician Documentation [facility] Name: Musa Hui Age: 67 yrs Sex: Male : 1955 Arrival Date: 01/07/2023 Time: 02:49 Bed 2 Private MD: ED Physician Hunter Dukes HPI: 01/07 02:51 This 67 yrs old Male presents to ER via Unassigned with complaints of weakness, AMS. rn 02:51 The patient presents with confusion, decreased responsiveness. Onset: The rn symptoms/episode began/occurred at an unknown time. Possible causes: unknown. Associated signs and symptoms: Pertinent positives: confusion, weakness, Pertinent negatives: abdominal pain, chest pain, combativeness, headache, seizure. Current symptoms: In the emergency department the patient's symptoms are unchanged from the initial presentation. It is unknown whether or not the patient has had similar symptoms in the past. EMS reports stated he took 3 edibles. Pt reports went to bed around 9 PM last night. Woke up feeling weak all over, confused, had ot crawl to bathroom, reports "thirsty". Denies fever/cough/sob. EMS reports oxygen was 89% on RA. . Historical: - Allergies: 02:53 No Known Allergies; kd3 - PMHx: 02:53 pacemaker; stents; kd3 - Immunization history:: Adult Immunizations up to date. - Social history:: Smoking status: unknown. - Family history:: not pertinent. - Hospitalizations: : No recent hospitalization is reported. ROS: 02:51 Constitutional: Negative for fever, chills, and weight loss, Eyes: Negative for injury, rn pain, redness, and discharge, Neck: Negative for injury, pain, and swelling, Cardiovascular: Negative for chest pain, palpitations, and edema, Respiratory: Negative for shortness of breath, cough, wheezing, and pleuritic chest pain, Abdomen/GI: Negative for abdominal pain, nausea, vomiting, diarrhea, and constipation, MS/Extremity: Negative for injury and deformity, Skin: Negative for injury, rash, and discoloration, Neuro: Negative for headache, numbness, tingling, and seizure. Exam: 02:51 Constitutional: This is a well developed, well nourished patient who is somnolent, rn slow to respond, slurred speech Head/Face: Normocephalic, atraumatic. Eyes: Pupils equal round and reactive to light, extra-ocular motions intact. No nystagmus. ENT: very dry MM Cardiovascular: Regular rate and rhythm. No pulse deficits. Respiratory: No increased work of breathing, no retractions or nasal flaring. Abdomen/GI: soft, non-tender Skin: Warm, dry, no cyanosis MS/ Extremity: Pulses equal, no cyanosis. Neuro: somnolent but awakens to voice, slow to respond, GCS 15, oriented to person, place, and situation. Cranial nerves II-XII grossly intact. Motor strength 4/5 in all extremities. Sensory grossly intact. + slurred speech. 05:52 ECG was reviewed by the Attending Physician. rn Vital Signs: 02:50 BP 96 / 67; Pulse 85; Resp 20; Temp 98.2(TE); Pulse Ox 95% on R/A; Weight 95.25 kg; kd3 Height 6 ft. 2 in. (187.96 cm); Pain 0/10; 04:13 BP 90 / 48; Pulse 78; Resp 21 S; Pulse Ox 93% on R/A; as6 05:00 BP 90 / 52; Pulse 77; Resp 16 S; Pulse Ox 93% on R/A; as6 06:20 BP 94 / 53; Pulse 75; Resp 15 S; Pulse Ox 95% on R/A; as6 06:51 BP 94 / 55; Pulse 75; Resp 17 S; Pulse Ox 96% on R/A; as6 07:38 BP 106 / 68; Pulse 71; Resp 16; Pulse Ox 98% ; ll1 02:50 Body Mass Index 26.96 (95.25 kg, 187.96 cm) kd3 MDM: 02:49 Patient medically screened. rn 03:31 Historians other than the Patient: Spouse/Significant Other: here now, states he rn had new edibles that he had never tried before. . 06:08 ED course: Pt improving slowly, ct head neg, + dehydration and THC +, pt states BP in rn 90s "close to normal" for him. WIll continue IVF and observation.. 07:20 Differential Diagnosis: CVA, electrolyte abnormality, alcohol intoxication, rn hypoglycemia, intracranial bleed, overdose, pneumonia, seizure, TIA, volume depletion. Data reviewed: vital signs, nurses notes, lab test result(s), EKG, radiologic studies, CT scan, and as a result, I will admit patient. Consideration of Admission/Observation Patient was admitted/placed on observation. Escalation of care including admission/observation considered. Management of patient was discussed with the following: Hospitalist: Management of case discussed with hospitalist. Independent interpretation of the following test(s) in the Emergency Department EKG: See my EKG interpretation above X-Ray: My interpretation is CXR neg for pneumothorax or pneumonia. Counseling: I had a detailed discussion with the patient and/or guardian regarding: the historical points, exam findings, and any diagnostic results supporting the discharge/admit diagnosis, lab results, radiology results, the need for further work-up and treatment in the hospital. Response to treatment: the patient's symptoms have mildly improved after treatment, and as a result, I will admit patient. ED course: Pt presented with generalized weakness and slurred speech, story was that he took edibles at about 2000 last night and went to bed at 2100, his last known normal. Presented almost 6 hours after last known normal. Gave him a chance to sober and gave fluids with some improvement, but observed overnight in ER and still slurred speech with what appears to be more prominent left lower facial droop. Speech improves slightly with water, no difficulty swallowing, and states still doesn't appear back to baseline. Patient was out of TNK window as he presented about 6 hours after last known normal when fell asleep last night. Will admit for further w/u and to rule out CVA. . 07:31 Test considered but Not performed: CT: Considered CTA to further eval but creatinine rn elevated and unable to. Will admit for MRI.. 01/07 02:51 Order name: Basic Metabolic Panel; Complete Time: 06:01/07 02:51 Order name: CBC with Diff; Complete Time: 06:01/07 02:51 Order name: Hepatic Function; Complete Time: 06:01/07 02:51 Order name: Magnesium; Complete Time: 06:01/07 02:51 Order name: Protime (+inr); Complete Time: 06:01/07 02:51 Order name: Ptt, Activated; Complete Time: 06:01/07 02:51 Order name: Troponin High Sensitivity; Complete Time: 06:24 02:51 Order name: Urine Drug Screen; Complete Time: 06:02 rn 01/07 02:51 Order name: COVID-19/FLU A+B rn 01/07 02:51 Order name: BNP; Complete Time: 06:02 rn 01/07 02:51 Order name: ETOH Level; Complete Time: 06:02 rn 01/07 03:37 Order name: Urine Dipstick-Ancillary; Complete Time: 06:02 EDMS 01/07 08:57 Order name: CBC with Automated Diff EDMS 01/07 08:57 Order name: CBC with Automated Diff EDMS 01/07 08:57 Order name: Comprehensive Metabolic Panel EDMS 01/07 08:57 Order name: Comprehensive Metabolic Panel EDMS 01/07 08:57 Order name: Lipid Profile EDMS 01/07 08:57 Order name: Lipid Profile EDMS 01/07 08:57 Order name: Protime (+INR) EDMS 01/07 08:57 Order name: Protime (+INR) EDMS 01/07 08:58 Order name: Protime (+INR) EDMS 01/07 08:58 Order name: Protime (+INR) EDMS 01/07 08:58 Order name: Protime (+INR) EDMS 01/07 08:58 Order name: Protime (+INR) EDMS 01/07 08:58 Order name: PTT, Activated Partial Thromb EDMS 01/07 08:58 Order name: PTT, Activated Partial Thromb EDMS 01/07 08:58 Order name: PTT, Activated Partial Thromb EDMS 01/07 08:58 Order name: PTT, Activated Partial Thromb EDMS 01/07 08:58 Order name: PTT, Activated Partial Thromb EDMS 01/07 08:58 Order name: PTT, Activated Partial Thromb EDMS 01/07 02:51 Order name: CT Head Brain wo Cont rn 01/07 02:51 Order name: Chest Single View XRAY rn 01/07 02:51 Order name: EKG; Complete Time: 02:51 rn 01/07 02:51 Order name: Cardiac monitoring; Complete Time: 02:51 rn 01/07 02:51 Order name: EKG - Nurse/Tech; Complete Time: 04:11 rn 01/07 02:51 Order name: IV Saline Lock; Complete Time: 02:51 rn 01/07 02:51 Order name: Labs collected and sent; Complete Time: 03:03 rn 01/07 02:51 Order name: O2 Per Protocol; Complete Time: 02:51 rn 01/07 02:51 Order name: O2 Sat Monitoring; Complete Time: 02:51 rn 01/07 02:51 Order name: Urine Dipstick-Ancillary (obtain specimen); Complete Time: 03:36 rn 01/07 08:57 Order name: Physical Therapy Consult EDMS 01/07 08:57 Order name: Speech Therapy Consult EDMS 01/07 08:57 Order name: Echo with Doppler EDMS 01/07 08:58 Order name: Brain Wo Cont EDMS 01/07 08:58 Order name: Brain Wo Cont EDMS 01/07 08:58 Order name: Carotid Artery Bilateral EDMS 01/07 15:37 Order name: Basic Metabolic Panel EDMS EC:52 Rate is 79 beats/min. Rhythm is regular. Right axis deviation noted. QRS is positive in rn lead aVF and negative in lead I. QRS interval is prolonged. QT interval is normal. No Q waves. T waves are Normal. No ST changes noted. Clinical impression: Paced rhythm. Interpreted by me. Reviewed by me. Administered Medications: 03:02 Drug: NS 0.9% 500 ml Route: IV; Rate: bolus; Site: left forearm; as6 07:39 Follow up: IV Status: Completed infusion; IV Intake: 500ml ll1 06:14 Drug: NS 0.9% 500 ml Route: IV; Rate: bolus; Site: left forearm; kd3 07:39 Follow up: Response: No adverse reaction; IV Status: Completed infusion; IV Intake: ll1 500ml 08:26 Not Given (Patient Refused): Aspirin Chewable Tablet 324 mg PO once; 81 mg tablets x 4 ll1 Disposition Summary: 01/07/23 07:31 Hospitalization Ordered Hospitalization Status: Observation rn Provider: Manuel Castaneda rn Condition: Stable rn Problem: new rn Symptoms: have improved rn Bed/Room Type: Standard rn Location: [facility] ER HOLD(01/07/23 09:02) eb Room Assignment: ERHOLD-(01/07/23 09:02) eb Diagnosis - Altered mental status, unspecified rn - Slurred speech rn - Muscle weakness (generalized) rn Forms: - Medication Reconciliation Form rn - SBAR form rn Signatures: Dispatcher [employer] Hunter Powers MD MD rn Botello, Elizabeth eb Slawson, Ashby, RN RN as6 Charlee Tomlinson RN RN kd3 Maximus Portillo RN ll1 Corrections: (The following items were deleted from the chart) 07:31 Telemetry/MedSurg (observation) aleta cali 07:31 aleta cali
[2023-01-07 08:03] LABS: SARS-COV-2 RT PCR NEGATIVE (NEGATIVE)
[2023-01-07] MEDS ORDERED: ASPIRIN 81 MG CHEWABLE TABLET ONE (08:20)
[2023-01-07] MEDS ORDERED: ASPIRIN EC 81 MG TAB PO ONE (08:20)
[2023-01-07] MEDS ORDERED: ONDANSETRON 4 MG/2 ML VIAL IV PRN (08:53)
[2023-01-07] MEDS ORDERED: ASPIRIN EC 81 MG TAB PO SCH (09:00)
[2023-01-07] MEDS ORDERED: CLOPIDOGREL 75 MG TABLET PO SCH (09:00)
[2023-01-07] MEDS ORDERED: NA CHLORIDE 0.9% 1,000 ML IV SCH (09:00)
[2023-01-07] MEDS ORDERED: ENOXAPARIN 40 MG/0.4 ML SQ SCH (09:00)
[2023-01-07 10:13] VITALS: BMI 26.8
[2023-01-07] MEDS ORDERED: NA CHLORIDE 0.9% 1,000 ML ONE (10:27)
[2023-01-07] MEDS ORDERED: CLOPIDOGREL 75 MG TABLET ONE (10:27)
[2023-01-07] MEDS ORDERED: ENOXAPARIN 40 MG/0.4 ML SQ ONE (10:27)
--- NOTE | 2023-01-07 10:37 | RAD REPORT ---
EXAM DESCRIPTION: RAD - Chest Single View - 01/07/2023 3:07 am CLINICAL HISTORY: AMS TECHNIQUE: Frontal view of the chest. COMPARISON: No relevant prior studies available. FINDINGS: Lungs: Mild central pulmonary vascular prominence and minimal patchy bibasilar opacities . Pleural space: Unremarkable. No pneumothorax. Heart: The cardiac silhouette is enlarged. Mediastinum: Unremarkable. Bones/joints: Unremarkable. Vasculature: Thoracic aortic atherosclerosis. Tubes, lines and devices: Left chest wall triple lead pacer. IMPRESSION: Findings which may be related to mild pulmonary congestion. Superimposed infection not excluded. Electronically signed by: Toan Olivares MD 01/07/2023 3:18 AM CHIEF PROGRAM OFFICER Due to temporary technical issues with the PACS/Fluency reporting system, reports are being signed by the in house radiologists without review as a courtesy to insure prompt reporting. The interpreting radiologist is fully responsible for the content of the report.
--- NOTE | 2023-01-07 10:43 | RAD REPORT ---
EXAM DESCRIPTION: CT - Head Brain Wo Cont - 01/07/2023 6:53 am CLINICAL HISTORY: The patient is 67 years old and is Male; Confused TECHNIQUE: Axial computed tomography images of the head/brain without intravenous contrast. Sagitt al and coronal reformatted images were created and reviewed. This CT exam was performed using one o r more of the following dose reduction techniques: automated exposure control, adjustment of the mA and/or kV according to patient size, and/or use of iterative reconstruction technique. COMPARISON: No relevant prior studies available. FINDINGS: Brain: Unremarkable. No hemorrhage. No significant white matter disease. No edema. Ventricles: Unremarkable. No ventriculomegaly. Bones/joints: Unremarkable. No acute fracture. Soft tissues: Unremarkable. Sinuses: Right maxillary sinus mucosal thickening. Mastoid air cells: Unremarkable as visualized. No mastoid effusion. IMPRESSION: No acute intracranial abnormality. Electronically signed by: Kobi Kingston MD 01/07/2023 4:04 AM CASE FITTER Due to temporary technical issues with the PACS/Fluency reporting system, reports are being signed by the in house radiologists without review as a courtesy to insure prompt reporting. The interpreting radiologist is fully responsible for the content of the report.
[2023-01-07] MEDS ORDERED: PNEUMOCOCCAL VACCINE 0.5 ML IMVAC ONE (11:00)
--- NOTE | 2023-01-07 12:45 | RAD REPORT ---
EXAM DESCRIPTION: USCarotid Artery Bilateral01/07/2023 12:27 pm CLINICAL HISTORY: cva COMPARISON: None FINDINGS: The velocity of the right internal carotid artery equals 80 cm/sec. The right ICA/CCA rati o 0.9 The velocity of the left internal carotid artery equals 96 cm/sec. The left ICA/CCA ratio 0.8 Mild plaque is present within the carotid arteries. The vertebral arteries demonstrate antegrade flow IMPRESSION: Mild plaque within the carotid arteries without evidence of a hemodynamically significan t stenosis NASCET criteria used. Mild 0-49% stenosis Moderate 50-69% stenosis Severe 70-99% stenosis
--- NOTE | 2023-01-07 13:19 | EKG ---
Test Date: 2023-01-07 Test Time: 04:03:05 [employer] Hay Sorter: MEASUREMENT RESULTS: Intervals: Rate: 79 IN: 168 QRSD: 186 QT: 478 QTc: 548 Oracle: P: 48 IN: 168 QRS: -46 T: 3 INTERPRETIVE STATEMENTS: Electronic ventricular pacemaker Compared to ECG 04/18/2019 10:28:43 Atrial-sensed ventricular-paced complex(es) or rhythm no longer present Electronically Signed On 01-07-23 13:17:56 PRODUCT GRADER by Jesus Liz
[2023-01-07 15:37] LABS: Potassium 4.2 mmol/L (3.5-5.1)
--- NOTE | 2023-01-07 15:46 | P.SSS ---
Patient History Date of Service: 01/07/23 Reason for admission: TIA History of Present Illness: Patient is a 67-year-old gentleman came to the hospital with CVA type symptoms. Patient was actually eating edible Gummies and afterwards was feeling generalized weakness and slurred speech. Patient was also very confused. Decision was made to bring patient into the emergency room for further evaluation. Patient had apparently had 3 Gummies and since then patient was feeling weak and patient apparently crawled on the bathroom floor because he was really thirsty as well. Patient was also dehydrated with acute renal insufficiency. Patient was hydrated aggressively. He is clinically feeling back to his baseline he wants to go home. Patient was admitted to the hospital for further observation. Imaging studies are pending to rule out CVA. Allergies No Known Allergies Allergy (Unverified 01/07/23 09:04) Home Medications: Allopurinol 300 mg PO DAILY 04/18/19 Aspirin [Adult Aspirin Regimen] 81 mg PO DAILY 04/18/19 Codeine/APAP [Tylenol #3*] 1 tab PO Q4HP PRN #30 tab 04/18/19 Esomeprazole Mag Trihydrate [Nexium] 40 mg PO DAILY 04/18/19 Furosemide 20 mg PO BID 04/18/19 Irbesartan [Avapro] 75 mg PO DAILY 04/18/19 Potassium Chloride [Klor-Con M20] 20 meq PO DAILY 04/18/19 Prasugrel Hydrochloride [Effient*] 10 mg PO DAILY 04/18/19 Simvastatin 20 mg PO DAILY 04/18/19 Sitagliptin Phosphate [Januvia*] 10 mg PO DAILY 04/18/19 Sulfamethoxazole/Trimethoprim [Bactrim Ds Tablet] 1 each PO BID #12 tablet 04/18/19 carvediloL [Coreg*] 12.5 mg PO BID 04/18/19 Dapagliflozin Propanediol [Farxiga] 10 mg PO DAILY 01/07/23 Ezetimibe 10 mg PO DAILY 01/07/23 Levothyroxine Sodium [Levothyroxine] 25 mcg PO DAILY 01/07/23 Rosuvastatin Calcium 20 mg PO DAILY 01/07/23 Sacubitril/Valsartan [Entresto 24 mg-26 mg Tablet] 1 tab PO BID 01/07/23 - Past Medical/Surgical History Has patient received pneumonia vaccine in the past: No Diabetic: No -: Heart stent -: hypertension -: pacemaker -: Pacemaker - Family History Family History: Reviewed- Non-Contributory - Social History Smoking Status: Never smoker Alcohol use: No CD- Drugs: Yes Review of Systems 10-point ROS is otherwise unremarkable Physical Examination - Vital Signs Temperature: 97.2 F Blood Pressure: 113/61 Pulse: 61 Respirations: 15 Pulse Ox (%): 100 - Physical Exam General: Alert, In no apparent distress, Oriented x3 HEENT: Atraumatic, PERRLA, Mucous membr. moist/pink, EOMI, Sclerae nonicteric Neck: Supple, 2+ carotid pulse no bruit, No LAD, Without JVD or thyroid abnormality Respiratory: Clear to auscultation bilaterally, Normal air movement Cardiovascular: Regular rate/rhythm, Normal S1 S2, No murmurs Gastrointestinal: Normal bowel sounds, Soft and benign, Non-distended, No tenderness Musculoskeletal: No clubbing, No swelling, No tenderness Integumentary: No rashes Neurological: Normal gait, Normal speech, Normal strength at 5/5 x4 extr, Normal tone, Sensation intact, Cranial nerves 3-12 intact, Normal affect Lymphatics: No axilla or inguinal lymphadenopathy - Studies Laboratory Data (last 24 hrs) 01/07/23 03:00: PT 12.4, INR 1.13, APTT 24.9 01/07/23 03:00: WBC 5.90, Hgb 10.3 L, Hct 33.9 L, Plt Count 172 01/07/23 03:00: Sodium 135 L, Potassium 4.1, BUN 37 H, Creatinine 2.11 H, Glucose 227 H, Magnesium 2.1, Total Bilirubin 1.0, AST 16, ALT 16, Alkaline Phosphatase 59 - Diagnosis (Problem(s)) (1) Use of cannabinoid edibles Current Visit: Yes Status: Acute (2) GLEN (acute kidney injury) Current Visit: Yes Status: Acute (3) Altered mental status Current Visit: Yes Status: Acute Treatment Summary: Patient was treated with IV fluids. Patient is imaging studies were negative. Patient states he is back to his baseline and he wants to go home. Plan is to discharge him home with outpatient follow-up. Patient will follow-up with neurology and nephrology as an outpatient. Continue with antiplatelet therapy. - Disposition Disposition: ROUTINE DISCHARGE Condition: GOOD Diet: AHA Activity: Fall precautions Time Spent Managing Pts Care (In Minutes): 45
[2023-01-07 15:59] VITALS: O2SAT 98
[2023-01-07 16:10] VITALS: BP 104/63; TEMP 97
[2023-01-07] MEDS ORDERED: ATORVASTATIN 80 MG TAB PO SCH (21:00)
== END 2023-01-07 15:47 | disposition home or self-care (01) ==
LOC: ER 02:48 → INTOOBSV 08:53 → ERHOLD 08:53
PROVIDERS: ADMIT Hospitalist; ATTEND Hospitalist
DX: R41.82 Altered mental status, unspecified (principal); T40.725A Adverse effect of synthetic cannabinoids, initial encounter; Y92.9 Unspecified place or not applicable; R53.1 Weakness; R47.81 Slurred speech; N17.9 Acute kidney failure, unspecified; Z20.822 Contact with and (suspected) exposure to COVID-19
CPT/HCPCS: 96361; 93005; 85025; 80048 ×2; 36415; 83735; 85610; 80076; 85730; 81003; 84484; 83880; 0240U; 80307; 70450; 71045; 93880; 92610; 97116; 97161; 97530; 96360; 99285; J7040 ×2; J7030; G0480; G0378; J1650

== ENCOUNTER 2024-05-09 06:29 | Day surgery (SDC) | payer OTHER ==
[2024-05-07 08:49] LABS: PTT, Activated Partial Thromb 35.1 SECONDS (24.3-36.9)
[2024-05-07 08:50] LABS: PT Prothrombin Time 12.2 SECONDS (9.4-12.5); Protime INR 1.11
[2024-05-07 08:58] LABS: Anion Gap 7.5 mEq/L (5.0-15.0); Potassium 4.5 mEq/L (3.5-5.1)
[2024-05-07 09:06] LABS: Absolute Eosinophils 0.1 K/uL (0-0.5); Absolute Lymphocytes (CBC) 1.4 K/uL (0.7-4.9); Absolute Monocytes 0.6 K/uL (0.1-1.3); Absolute Neutrophil 3.1 K/uL (1.8-8.0); Basophils % 0.9 % (0-1.3); Eosinophils % 2.8 % (0-4.4); Hematocrit 43.2 % (39.6-49.0); Hemoglobin 13.3 g/dL (13.6-17.9); MCHC 30.7 g/dL (32.0-36.0); MCV 78.3 fL (80-100); MPV 7.3 fL (7.6-11.3); Monocytes % 10.6 % (3.3-12.3); Neutrophils % 58.7 % (41.7-73.7); Nucleated Red Blood Cells % 0.2 % (0-0); Platelets 163 thou/uL (152-406); RBC Red Blood Cell Count 5.53 M/uL (4.33-5.43); Red Cell Distribution Width 20.7 % (12.1-15.2)
[2024-05-07 09:19] LABS: White Blood Cell Scan OK (OK)
[2024-05-07 09:20] LABS: Anisocytosis 1+; Blood Morphology Comment NOTED (NOT SEEN); Hypochromasia 2+; Ovalocytes 1+; Platelet Estimate ADEQ
--- NOTE | 2024-05-07 13:02 | EKG ---
Test Date: 2024-05-07 Test Time: 08:28:50 Rn Oncology: HARLEEN MEASUREMENT RESULTS: Intervals: Rate: 73 MA: 168 QRSD: 172 QT: 442 QTc: 486 [place]: P: 53 MA: 168 QRS: -89 T: 42 INTERPRETIVE STATEMENTS: Electronic ventricular pacemaker Compared to ECG 01/07/2023 04:03:05 No significant changes Electronically Signed On 05-07-24 13:01:29 CDT by Jesus Liz
[2024-05-09] MEDS: NA CHLORIDE 0.9% 1,000 ML ONE (07:15)
[2024-05-09] MEDS ORDERED: propofoL 200 MG/20 ML VIAL IV ONE ×2 (07:36→08:23)
[2024-05-09] MEDS ORDERED: LIDOCAINE 1% MPF 5 ML VIAL ONE (07:36)
[2024-05-09 13:54] VITALS: O2SAT 99
[2024-05-09 13:55] VITALS: BP 102/58
[2024-05-09 14:16] VITALS: TEMP 97
== END 2024-05-09 10:09 | disposition home or self-care (01) ==
LOC: OR 06:29
PROVIDERS: ATTEND Internal Medicine Gastroenterology
PROC: 0DBM8ZX Excision of Descending Colon, Via Natural or Artificial Opening Endoscopic, Diagnostic (ICD-10-PCS; principal; 2024-05-09 07:30)
PROC: 0DB68ZX Excision of Stomach, Via Natural or Artificial Opening Endoscopic, Diagnostic (ICD-10-PCS; 2024-05-09 07:30)
DX: Z86.010 Personal history of colon polyps (principal); K29.70 Gastritis, unspecified, without bleeding; K31.7 Polyp of stomach and duodenum; K63.5 Polyp of colon; Z85.01 Personal history of malignant neoplasm of esophagus; K64.8 Other hemorrhoids; K57.30 Diverticulosis of large intestine without perforation or abscess without bleeding; K21.9 Gastro-esophageal reflux disease without esophagitis; K44.9 Diaphragmatic hernia without obstruction or gangrene; K29.50 Unspecified chronic gastritis without bleeding; K29.80 Duodenitis without bleeding; K26.9 Duodenal ulcer, unspecified as acute or chronic, without hemorrhage or perforation; K57.10 Diverticulosis of small intestine without perforation or abscess without bleeding; D12.4 Benign neoplasm of descending colon; Z83.719 Family history of colon polyps, unspecified
CPT/HCPCS: 93005; 85025; 80048; 36415; 88312; 85610; 82947 ×2; 88305; 85730; 45380; 43239; J2704 ×2; J2001; J7030

== ENCOUNTER 2024-08-14 16:54 | Emergency (ER) | payer OTHER ==
[2024-08-14] MEDS ORDERED: OXYMETAZOLINE HCL 0.05% 15ML NAS ONE (18:53)
[2024-08-14] MEDS ORDERED: TRANEXAMIC ACID 1,000 MG/10 ML VIAL IV ONE (18:55)
[2024-08-14] MEDS ORDERED: LIDOCAINE HCL JELLY 2% 6 ML SYRINGE TOP ONE (19:00)
[2024-08-14 20:10] LABS: Hematocrit 46.4 % (39.6-49.0); Hemoglobin 14.7 g/dL (13.6-17.9); MCH 26.5 pg (27.0-35.0); MCHC 31.6 g/dL (32.0-36.0); MCV 83.8 fL (80-100); MPV 7.9 fL (7.6-11.3); Platelets 166 thou/uL (152-406); RBC Red Blood Cell Count 5.54 M/uL (4.33-5.43); Red Cell Distribution Width 19.9 % (12.1-15.2)
[2024-08-14 20:14] LABS: PT Prothrombin Time 11.9 SECONDS (9.4-12.5); Protime INR 1.06
[2024-08-14 20:21] LABS: Anion Gap 8.3 mEq/L (5.0-15.0); Potassium 4.3 mEq/L (3.5-5.1)
--- NOTE | 2024-08-14 21:29 | EDPHYS ---
Physician Documentation [facility] Name: Musa Hui Age: 69 yrs Sex: Male : 1955 Arrival Date: 08/14/2024 Time: 16:54 Bed 16 Private MD: ED Physician Yrn Hemphill HPI: 08/14 19:34 This 69 yrs old Male presents to ER via Ambulatory with complaints of Nose gb1 Bleed - Blood Thinners. 19:34 69-year-old male with a history of cardiac stents on Effient has a right nare gb1 nosebleed. Patient has a history of gout, GERD, hypothyroidism, congestive heart failure and diabetes he also has a pacemaker placed. He states that he is had this nosebleed before a few years ago but he feels like he has had a dry nose due to the change in temperature.. Historical: - Allergies: 17:01 No Known Allergies; tm6 - PMHx: 17:01 Pacemaker; stents; Gout; Gastric reflux; Hypothyroidism; Congestive heart failure; tm6 Diabetes mellitus; - PSHx: 17:01 hernia repair; tm6 - Immunization history:: Client reports receiving the 2nd dose of the Covid vaccine. - Infectious Disease History:: Denies. - Social history:: Smoking status: Patient denies any tobacco usage or history of. Patient uses alcohol, occasionally. Exam: 19:34 Constitutional: This is a well developed, well nourished patient who is awake, alert, gb1 and in no acute distress. Head/Face: Normocephalic, atraumatic. Eyes: Pupils equal round and reactive to light, extra-ocular motions intact. Lids and lashes normal. Conjunctiva and sclera are non-icteric and not injected. Cornea within normal limits. Periorbital areas with no swelling, redness, or edema. ENT: Right nare has an active bleed, unable to visualize the turbinates due to brisk bleeding. There is no sign of a septal hematoma or any trauma to the nose.. Tympanic membranes are normal and external auditory canals are clear. Oropharynx with no redness, swelling, or masses, exudates, or evidence of obstruction, uvula midline. Mucous membranes moist. Neck: Trachea midline, no thyromegaly or masses palpated, and no cervical lymphadenopathy. Supple, full range of motion without nuchal rigidity, or vertebral point tenderness. No Meningismus. Chest/axilla: Normal chest wall appearance and motion. Nontender with no deformity. No lesions are appreciated. Cardiovascular: Regular rate and rhythm with a normal S1 and S2. No gallops, murmurs, or rubs. Normal PMI, no JVD. No pulse deficits. Respiratory: Lungs have equal breath sounds bilaterally, clear to auscultation and percussion. No rales, rhonchi or wheezes noted. No increased work of breathing, no retractions or nasal flaring. Abdomen/GI: Soft, non-tender, with normal bowel sounds. No distension or tympany. No guarding or rebound. No evidence of tenderness throughout. Skin: Warm, dry with normal turgor. Normal color with no rashes, no lesions, and no evidence of cellulitis. MS/ Extremity: Pulses equal, no cyanosis. Neurovascular intact. Full, normal range of motion. Vital Signs: 17:00 BP 130 / 78; Pulse 92; Resp 18; Temp 97.3(TE); Pulse Ox 99% ; MAP 92 mmHg; Weight 95.25 tm6 kg; Height 6 ft. 3 in. ; Pain 0/10; 18:46 BP 124 / 67; Pulse 93; Resp 15 S; Pulse Ox 96% on R/A; kc6 20:54 BP 126 / 71; Pulse 80; Resp 16; Pulse Ox 94% on R/A; jb4 17:00 Body Mass Index 26.25 (95.25 kg, 190.5 cm) tm6 17:00 Pain Scale: Adult tm6 Procedures: 19:34 Epistaxis treatment: Copious amount of bleeding noted from right nare. Treated using gb1 Oxymetazoline sprays, direct pressure, nasal clamp, rhino rocket, Bleeding stopped. MDM: 18:49 Patient medically screened. gb1 19:34 Differential diagnosis: nasal fracture, spontaneous epistaxis. Data reviewed: vital gb1 signs, nurses notes, lab test result(s). ED course: 69-year-old male currently on Effient with a history of coronary artery stents here with a right anterior epistaxis. Right nare pressure and topical vasoconstrictor applied via spray to the right nare was unsuccessful. Bleeding did cease with the application of a Rhino Rocket bathed in TXA and lidocaine jelly. Patient has an ENT appointment tomorrow with his established vp biology. I have ordered labs are still pending. Patient is clinically transition care to Dr. Hemphill at 1999 pending labs and reevaluation of the right epistaxis I presume this is an anterior epistaxis and I doubt a posterior epistaxis.. . 21:27 ED course: 69-year-old male with now resolved epistaxis. Patient signed out to me by sp3 daytime physician Dr. Spear. Labs within normal limits and Rhino Rocket still in place without further bleeding. We will discharge patient home and he also has an appoint with ENT tomorrow. Will add antibiotics for prophylaxis for Rhino Rocket being in place.. 08/14 19:07 Order name: CBC w/o diff; Complete Time: 20:58 gb1 08/14 19:07 Order name: PT-INR; Complete Time: 20:58 gb1 08/14 19:07 Order name: BMP; Complete Time: 20:58 gb1 Administered Medications: 19:51 Drug: Oxymetazoline Intranasal Drops (0.05 %) 1 sprays Intranasal once {Note: jb4 administered by provider..} Route: Intranasal; Site: right nare; 19:51 Drug: Cyklokapron 1000 mg IV at per protocol once; administer to nasal rhinorocket jb4 {Note: administered by provider..} Route: IV; Rate: per protocol; Site: Other; Disposition Summary: 08/14/24 21:28 Discharge Ordered Notes: Location: Home sp3 Condition: Stable sp3 Diagnosis - Epistaxis sp3 Followup: sp3 - With: Private Physician - When: Upon discharge from the Emergency Department - Reason: Continuance of care Discharge Instructions: - Discharge Summary Sheet sp3 - Nosebleed, Adult sp3 Forms: - Medication Reconciliation Form sp3 - Antibiotic Education sp3 - Prescription Opioid Use sp3 - Patient Portal Instructions sp3 - Leadership Thank You Letter sp3 Prescriptions: - Cephalexin 500 mg Oral capsule - take 1 capsule ORAL route every 8 hours for 5 days; 15 capsule; Refills: 0, sp3 Product Selection Permitted Signatures: Dispatcher [employer] EDNY Adrien Urrutia RN RN jb4 Yrn Hemphill MD MD sp3 Junie Carmen MD MD gb1 Yris, Tawney, RN RN tm6
--- NOTE | 2024-08-14 21:29 | ER ---
Nurse's Notes [facility] Name: Musa Hui Age: 69 yrs Sex: Male : 1955 Arrival Date: 08/14/2024 Time: 16:54 Bed 16 Private MD: Diagnosis: Epistaxis Presentation: 08/14 17:00 Chief complaint: Patient states: nose bleed started about two hours ago, not been able tm6 to stop. On blood thinners. Coronavirus screen: Client denies travel out of the [place] in the last 14 days. Ebola Screen: Patient negative for fever greater than or equal to 101.5 degrees Fahrenheit, and additional compatible Ebola Virus Disease symptoms Patient denies exposure to infectious person. Patient denies travel to an Ebola-affected area in the 21 days before illness onset. No symptoms or risks identified at this time. Initial Sepsis Screen: Does the patient meet any 2 criteria? No. Patient's initial sepsis screen is negative. Does the patient have a suspected source of infection? No. Patient's initial sepsis screen is negative. Risk Assessment: Do you want to hurt yourself or someone else? Patient reports no desire to harm self or others. Onset of symptoms was August 14, 2024 at 15:00. 17:00 Method Of Arrival: Ambulatory tm6 17:00 Acuity: CHEYANNE 3 tm6 Triage Assessment: 17:01 General: Appears in no apparent distress. Behavior is calm, cooperative. Pain: Denies tm6 pain. EENT: Nares with bleeding noted. Neuro: Level of Consciousness is awake, alert, obeys commands, Oriented to person, place, time, situation. Cardiovascular: Patient's skin is warm and dry. Respiratory: Airway is patent Respiratory effort is even, unlabored, Respiratory pattern is regular, symmetrical. GI: No signs and/or symptoms were reported involving the gastrointestinal system. Abdomen is flat, non-distended. : No signs and/or symptoms were reported regarding the genitourinary system. Derm: No signs and/or symptoms reported regarding the dermatologic system. Musculoskeletal: No signs and/or symptoms reported regarding the musculoskeletal system. Historical: - Allergies: 17:01 No Known Allergies; tm6 - PMHx: 17:01 Pacemaker; stents; Gout; Gastric reflux; Hypothyroidism; Congestive heart failure; tm6 Diabetes mellitus; - PSHx: 17:01 hernia repair; tm6 - Immunization history:: Client reports receiving the 2nd dose of the Covid vaccine. - Infectious Disease History:: Denies. - Social history:: Smoking status: Patient denies any tobacco usage or history of. Patient uses alcohol, occasionally. Screenin:46 [facility] ED Fall Risk Assessment (Adult) History of falling in the last 3 months, kc6 including since admission No falls in past 3 months (0 pts) Confusion or Disorientation No (0 pts) Intoxicated or Sedated No (0 pts) Impaired Gait No (0 pts) Mobility Assist Device Used No (0 pt) Altered Elimination No (0 pt) Score/Fall Risk Level 0 - 2 = Low Risk Oriented to surroundings. Abuse screen: Denies threats or abuse. Denies injuries from another. Nutritional screening: No deficits noted. Tuberculosis screening: No symptoms or risk factors identified. Assessment: 18:45 General: Appears in no apparent distress. comfortable, well groomed, well developed, kc6 Behavior is calm, cooperative, appropriate for age. Pain: Denies pain. Neuro: Level of Consciousness is awake, alert, obeys commands, Oriented to person, place, time, situation, Appropriate for age. Cardiovascular: Capillary refill < 3 seconds. Respiratory: Airway is patent Trachea midline Respiratory effort is even, unlabored, Respiratory pattern is regular, symmetrical. GI: No signs and/or symptoms were reported involving the gastrointestinal system. : No signs and/or symptoms were reported regarding the genitourinary system. EENT: Nares with bleeding noted on right. Derm: No signs and/or symptoms reported regarding the dermatologic system. Skin is intact, is healthy with good turgor, Skin is pink, warm \T\ dry. Musculoskeletal: No signs and/or symptoms reported regarding the musculoskeletal system. Circulation, motion, and sensation intact. Capillary refill < 3 seconds, Range of motion: intact in all extremities. 20:00 Reassessment: Patient appears in no apparent distress at this time. Patient and/or jb4 family updated on plan of care and expected duration. Pain level reassessed. Patient is alert, oriented x 3, equal unlabored respirations, skin warm/dry/pink. Pt reports no longer bleeding from the nose. 20:54 Reassessment: Patient appears in no apparent distress at this time. Patient and/or jb4 family updated on plan of care and expected duration. Pain level reassessed. Patient is alert, oriented x 3, equal unlabored respirations, skin warm/dry/pink. 21:48 Reassessment: Patient appears in no apparent distress at this time. Patient and/or jb4 family updated on plan of care and expected duration. Pain level reassessed. Patient is alert, oriented x 3, equal unlabored respirations, skin warm/dry/pink. Vital Signs: 17:00 BP 130 / 78; Pulse 92; Resp 18; Temp 97.3(TE); Pulse Ox 99% ; MAP 92 mmHg; Weight 95.25 tm6 kg; Height 6 ft. 3 in. ; Pain 0/10; 18:46 BP 124 / 67; Pulse 93; Resp 15 S; Pulse Ox 96% on R/A; kc6 20:54 BP 126 / 71; Pulse 80; Resp 16; Pulse Ox 94% on R/A; jb4 17:00 Body Mass Index 26.25 (95.25 kg, 190.5 cm) tm6 17:00 Pain Scale: Adult tm6 ED Course: 16:55 Patient arrived in ED. mg5 17:01 Triage completed. tm6 17:01 Arm band placed on left wrist. tm6 18:15 Junie Carmen MD is Attending Physician. gb1 18:23 Aliyah Che, RN is Primary Nurse. kc6 18:45 Patient maintains SpO2 saturation greater than 95% on room air. kc6 18:46 Patient has correct armband on for positive identification. Bed in low position. Call kc6 light in reach. Side rails up X 1. Adult w/ patient. Pulse ox on. NIBP on. Door closed. Noise minimized. Lights dimmed. Pillow given. 19:03 Assist provider with nosebleed control using Afrin sprays, direct pressure, rhino kc6 rocket placed for extensive packing needs, Bleeding from right nares. Set up for procedure. Performed by Junie Carmen MD Bleeding stopped. Patient tolerated well. 20:03 Attending Physician role handed off by Junie Carmen MD sp3 20:03 Yrn Hemphill MD is Attending Physician. sp3 20:54 Provided Education on: plan of care. jb4 20:54 Patient did not have IV access during this emergency room visit. jb4 Administered Medications: 19:51 Drug: Oxymetazoline Intranasal Drops (0.05 %) 1 sprays Intranasal once {Note: jb4 administered by provider..} Route: Intranasal; Site: right nare; 19:51 Drug: Cyklokapron 1000 mg IV at per protocol once; administer to nasal rhinorocket jb4 {Note: administered by provider..} Route: IV; Rate: per protocol; Site: Other; Medication: 20:54 VIS not applicable for this client. jb4 Outcome: 21:28 Discharge ordered by . marcelino 21:48 Discharged to home ambulatory, jb4 21:48 Condition: stable 21:48 Discharge instructions given to patient, Instructed on discharge instructions, follow up and referral plans. medication usage, Demonstrated understanding of instructions, follow-up care, medications, Prescriptions given X 1, 21:49 Patient left the ED. jb4 Signatures: Adrien Urrutia, RN RN jb4 Yrn Hemphill MD MD sp3 Aliyah Che RN RN 6 Theresa Walker mg5 Junie Carmen MD MD gb1 Hill Arndt, RN RN tm6
[2024-08-15 04:04] VITALS: TEMP 97.3
[2024-08-15 04:07] VITALS: BP 126/71; O2SAT 94
== END 2024-08-14 21:49 | disposition home or self-care (01) ==
LOC: ER 16:54
DX: R04.0 Epistaxis (principal); Z79.01 Long term (current) use of anticoagulants; Z95.0 Presence of cardiac pacemaker
CPT/HCPCS: 30901; 36415; 80048; 85027; 85610; 96374; 99284

== ENCOUNTER 2024-08-20 15:30 | Emergency (ER) | payer OTHER ==
[2024-08-20] MEDS ORDERED: NA CHLORIDE 0.9% 1,000 ML ONE (16:28)
[2024-08-20 17:22] LABS: Absolute Basophils 0.1 K/uL (0-0.5); Absolute Eosinophils 0.2 K/uL (0-0.5); Absolute Monocytes 0.8 K/uL (0.1-1.3); Absolute Neutrophil 3.7 K/uL (1.8-8.0); Eosinophils % 2.8 % (0-4.4); Hematocrit 46.6 % (39.6-49.0); Hemoglobin 14.5 g/dL (13.6-17.9); Lymphocytes % 29.1 % (15.3-44.8); MCH 26.4 pg (27.0-35.0); MCHC 31.1 g/dL (32.0-36.0); MCV 84.9 fL (80-100); MPV 7.8 fL (7.6-11.3); Monocytes % 11.9 % (3.3-12.3); Neutrophils % 55.2 % (41.7-73.7); Platelets 177 thou/uL (152-406); RBC Red Blood Cell Count 5.49 M/uL (4.33-5.43); Red Cell Distribution Width 19.9 % (12.1-15.2)
[2024-08-20 17:30] LABS: PT Prothrombin Time 12.3 SECONDS (9.4-12.5); Protime INR 1.1
[2024-08-20 17:42] LABS: Albumin 3.8 g/dL (3.4-5.0); Anion Gap 8.3 mEq/L (5.0-15.0); Bilirubin Total 0.9 mg/dL (0.2-1.0); Globulin 3.7 g/dL (2.3-3.5); Potassium 4.3 mEq/L (3.5-5.1); Protein, Total 7.5 g/dL (6.4-8.2)
--- NOTE | 2024-08-20 18:35 | ER ---
Nurse's Notes [facility] Name: Musa Hui Age: 69 yrs Sex: Male : 1955 Arrival Date: 08/20/2024 Time: 15:30 Bed 9 Private MD: Diagnosis: Epistaxis;exterminator helper termite (current) use of anticoagulants Presentation: 08/20 15:44 Chief complaint: Patient states: Nose bleed onset today. Pt states that he was seen cm10 here last week for the same issue. Coronavirus screen: Client denies travel out of the [place] in the last 14 days. Ebola Screen: Patient denies travel to an Ebola-affected area in the 21 days before illness onset. No symptoms or risks identified at this time. Initial Sepsis Screen: Does the patient meet any 2 criteria? No. Patient's initial sepsis screen is negative. Does the patient have a suspected source of infection? No. Patient's initial sepsis screen is negative. Risk Assessment: Do you want to hurt yourself or someone else? Patient reports no desire to harm self or others. Onset of symptoms was August 20, 2024. 15:44 Method Of Arrival: Ambulatory 10 15:44 Acuity: CHEYANNE 3 cm10 Triage Assessment: 15:46 General: Appears in no apparent distress. comfortable, Behavior is calm, cooperative. cm10 EENT: Reports nasal discharge that is bloody. Neuro: No deficits noted. Level of Consciousness is awake, alert, obeys commands, Oriented to person, place, time, situation, Appropriate for age. Respiratory: No deficits noted. Airway is patent Respiratory effort is even, unlabored, Respiratory pattern is regular, symmetrical. Historical: - Allergies: 15:45 No Known Allergies; cm10 - Home Meds: 15:45 prasugrel oral [Active]; cm10 - PMHx: 15:45 Congestive heart failure; diabetes mellitus; Gastric Reflux; Gout; Hypothyroidism; cm10 Pacemaker; stents; - PSHx: 15:45 hernia repair; cm10 - Immunization history:: Adult Immunizations up to date. - Infectious Disease History:: Denies. - Social history:: Smoking status: Patient denies any tobacco usage or history of. - Family history:: not pertinent. Screenin:20 [facility] ED Fall Risk Assessment (Adult) History of falling in the last 3 months, tl4 including since admission No falls in past 3 months (0 pts) Confusion or Disorientation No (0 pts) Intoxicated or Sedated No (0 pts) Impaired Gait No (0 pts) Mobility Assist Device Used No (0 pt) Altered Elimination No (0 pt) Score/Fall Risk Level 0 - 2 = Low Risk Oriented to surroundings, Maintained a safe environment, Educated pt \T\ family on fall prevention, incl call for assistance when getting out of bed, Assessed \T\ reinforced patient's understanding of fall precautions. Abuse screen: Denies threats or abuse. Denies injuries from another. Nutritional screening: No deficits noted. Tuberculosis screening: No symptoms or risk factors identified. Assessment: 16:48 General: Appears in no apparent distress. Behavior is calm, cooperative. Pain: Denies tl4 pain. Neuro: Level of Consciousness is awake, alert, obeys commands, Oriented to person, place, time, situation, Moves all extremities. Full function Gait is steady, Speech is normal. Cardiovascular: Capillary refill < 3 seconds Patient's skin is warm and dry. Respiratory: Airway is patent Respiratory effort is even, unlabored, Respiratory pattern is regular, symmetrical. GI: No signs and/or symptoms were reported involving the gastrointestinal system. : No signs and/or symptoms were reported regarding the genitourinary system. EENT: Nares with bleeding noted blood on gauze in both nares. Derm: No signs and/or symptoms reported regarding the dermatologic system. Musculoskeletal: No signs and/or symptoms reported regarding the musculoskeletal system. 17:17 Reassessment: extended time to treatment due to patient waiting to speak to Dr rose Ann. Spoke with pt, Dr Ann has been unable to speak to patient yet, but he agrees to treatment. pt nose actively bleeding. Pt requests no nasal clamp until he is evaluated. pt holding pressure with gauze. Pt given extra gauze. Call [place] at bedside. Will continue to monitor. 20:06 Reassessment: Extended time to discharge due to completing antibiotic infusion. 4 Vital Signs: 15:44 BP 109 / 61; Pulse 86; Resp 16; Temp 98.1; Pulse Ox 95% on R/A; Weight 95.25 kg; Height cm10 6 ft. 3 in. ; Pain 0/10; 20:06 BP 139 / 79; Pulse 76; Resp 16; Temp 98(O); Pulse Ox 100% on R/A; Pain 2/10; tl4 15:44 Body Mass Index 26.25 (95.25 kg, 190.5 cm) cm10 15:44 Pain Scale: Adult cm10 20:06 Pain Scale: Adult tl4 ED Course: 15:32 Patient arrived in ED. ra3 15:45 Triage completed. cm10 15:46 Arm band placed on Patient placed in waiting room. cm10 15:48 Ferdinand Ann MD is Attending Physician. rebecca 16:27 Mac Chaudhary, RN is Primary Nurse. tl4 17:20 Patient has correct armband on for positive identification. Bed in low position. Call tl4 light in reach. Side rails up X 1. Provided Education on: ed process, call [place]. Client placed on continuous cardiac and pulse oximetry monitoring. NIBP monitoring applied. Door closed. Noise minimized. Lights dimmed. Moved to private room. 17:21 No provider procedures requiring assistance completed. Initial lab(s) drawn, by nj, tl4 sent to lab. Inserted saline lock: 22 gauge in left forearm, using aseptic technique. Blood collected. Flushed with 10 mL NS. 17:22 PT-INR Sent. tl4 17:22 Comprehensive Metabolic Panel Sent. tl4 17:22 CBC with Diff Sent. tl4 18:34 Shira Davies MD is Referral Physician. rebecca 19:56 IV discontinued, intact, bleeding controlled, No redness/swelling at site. Pressure kmf dressing applied. 20:08 IV discontinued, intact, bleeding controlled, No redness/swelling at site. Pressure tl4 dressing applied. Administered Medications: 17:22 Drug: NS 0.9% IV 1000 ml IV at 125 ml/hr continuous Route: IV; Rate: 125 ml/hr; Site: tl4 left forearm; Delivery: Primary tubing; 19:33 Follow up: IV Status: Completed infusion; IV Intake: 300ml tl4 19:32 Drug: Ondansetron IVP 4 mg IVP once; over 2 minutes Route: IVP; Infused Over: 2 mins; tl4 Site: left forearm; 20:00 Follow up: Response: No adverse reaction tl4 19:32 Drug: ceFAZolin IVPB 1 grams IVPB once Route: IVPB; Infused Over: 30 mins; Site: left tl4 forearm; Delivery: Primary tubing; 20:00 Follow up: Response: No adverse reaction; IV Status: Completed infusion; IV Intake: [id number] 19:33 Drug: fentaNYL (PF) IVP 50 mcg IVP once Route: IVP; Infused Over: 2 mins; Site: left tl4 forearm; 20:01 Follow up: Response: No adverse reaction; Pain is decreased tl4 Medication: 17:20 VIS not applicable for this client. tl4 Intake: 19:33 IV: 300ml; Total: 300ml. tl4 20:00 IV: 50ml; Total: 350ml. tl4 Outcome: 18:34 Discharge ordered by . rebecca 20:07 Discharged to home ambulatory, tl4 20:07 Condition: stable 20:07 Discharge instructions given to patient, Instructed on discharge instructions, follow up and referral plans. medication usage, Demonstrated understanding of instructions, follow-up care, medications, Prescriptions given X 2, 20:08 Patient left the ED. tl4 Signatures: Ferdinand Ann MD MD cha Martinez, Clarissa, RN RN cm10 Amina Pineda [facility] Mac Chaudhary RN RN tl4 Lela Garber 3
--- NOTE | 2024-08-20 18:35 | EDPHYS ---
Physician Documentation [facility] Name: Musa Hui Age: 69 yrs Sex: Male : 1955 Arrival Date: 08/20/2024 Time: 15:30 Bed 9 Private MD: ED Physician Ferdinand Ann HPI: 08/20 17:33 This 69 yrs old Male presents to ER via Ambulatory with complaints of Nose rebecca Bleed. 17:33 The patient presents with a nose bleed, that is apparently posterior, from both nares. rebecca Onset: The symptoms/episode began/occurred this morning. Modifying factors: The symptoms are alleviated by nothing. the symptoms are aggravated by nothing. Associated signs and symptoms: The patient has no apparent associated signs or symptoms. Severity of symptoms: At their worst the symptoms were mild in the emergency department the symptoms are unchanged. The patient has not experienced similar symptoms in the past. Historical: - Allergies: 15:45 No Known Allergies; cm10 - Home Meds: 15:45 prasugrel oral [Active]; cm10 - PMHx: 15:45 Congestive heart failure; diabetes mellitus; Gastric Reflux; Gout; Hypothyroidism; cm10 Pacemaker; stents; - PSHx: 15:45 hernia repair; cm10 - Immunization history:: Adult Immunizations up to date. - Infectious Disease History:: Denies. - Social history:: Smoking status: Patient denies any tobacco usage or history of. - Family history:: not pertinent. ROS: 17:33 Constitutional: Negative for fever, chills, and weight loss, Eyes: Negative for injury, rebecca pain, redness, and discharge, Neck: Negative for injury, pain, and swelling, Cardiovascular: Negative for chest pain, palpitations, and edema, Respiratory: Negative for shortness of breath, cough, wheezing, and pleuritic chest pain, Abdomen/GI: Negative for abdominal pain, nausea, vomiting, diarrhea, and constipation, Back: Negative for injury and pain, : Negative for injury, bleeding, discharge, and swelling, MS/Extremity: Negative for injury and deformity, Skin: Negative for injury, rash, and discoloration, Neuro: Negative for headache, weakness, numbness, tingling, and seizure, Psych: Negative for depression, anxiety, suicide ideation, homicidal ideation, and hallucinations, Allergy/Immunology: Negative for hives, rash, and allergies, Endocrine: Negative for neck swelling, polydipsia, polyuria, polyphagia, and marked weight changes, Hematologic/Lymphatic: Negative for swollen nodes, abnormal bleeding, and unusual bruising, 17:33 ENT: Positive for nose bleed, Exam: 17:33 Constitutional: This is a well developed, well nourished patient who is awake, alert, rebecca and in no acute distress. Head/Face: Normocephalic, atraumatic. Eyes: Pupils equal round and reactive to light, extra-ocular motions intact. Lids and lashes normal. Conjunctiva and sclera are non-icteric and not injected. Cornea within normal limits. Periorbital areas with no swelling, redness, or edema. Neck: Trachea midline, no thyromegaly or masses palpated, and no cervical lymphadenopathy. Supple, full range of motion without nuchal rigidity, or vertebral point tenderness. No Meningismus. Chest/axilla: Normal chest wall appearance and motion. Nontender with no deformity. No lesions are appreciated. Cardiovascular: Regular rate and rhythm with a normal S1 and S2. No gallops, murmurs, or rubs. Normal PMI, no JVD. No pulse deficits. Respiratory: Lungs have equal breath sounds bilaterally, clear to auscultation and percussion. No rales, rhonchi or wheezes noted. No increased work of breathing, no retractions or nasal flaring. Abdomen/GI: Soft, non-tender, with normal bowel sounds. No distension or tympany. No guarding or rebound. No evidence of tenderness throughout. Back: No spinal tenderness. No costovertebral tenderness. Full range of motion. Male : Normal genitalia with no discharge or lesions. Skin: Warm, dry with normal turgor. Normal color with no rashes, no lesions, and no evidence of cellulitis. MS/ Extremity: Pulses equal, no cyanosis. Neurovascular intact. Full, normal range of motion. Neuro: Awake and alert, GCS 15, oriented to person, place, time, and situation. Cranial nerves II-XII grossly intact. Motor strength 5/5 in all extremities. Sensory grossly intact. Cerebellar exam normal. Normal gait. Psych: Awake, alert, with orientation to person, place and time. Behavior, mood, and affect are within normal limits. 17:33 ENT: Nose: bleeding, is noted from both nares, and is minimal, clotted blood, Mouth: is normal, Posterior pharynx: Airway: normal, no evidence of obstruction, Tonsils: are normal in appearance, Uvula: normal, exudate, is not appreciated, Vital Signs: 15:44 BP 109 / 61; Pulse 86; Resp 16; Temp 98.1; Pulse Ox 95% on R/A; Weight 95.25 kg; Height cm10 6 ft. 3 in. ; Pain 0/10; 20:06 BP 139 / 79; Pulse 76; Resp 16; Temp 98(O); Pulse Ox 100% on R/A; Pain 2/10; tl4 15:44 Body Mass Index 26.25 (95.25 kg, 190.5 cm) cm10 15:44 Pain Scale: Adult cm10 20:06 Pain Scale: Adult tl4 MDM: 15:48 Patient medically screened. [facility] 17:35 Differential diagnosis: spontaneous epistaxis. Data reviewed: vital signs, nurses [facility] notes, lab test result(s), CBC, electrolytes. Consideration of Admission/Observation Escalation of care including admission/observation considered. Management of patient was discussed with the following: Medical Affairs Leader: dr shira davies. Test considered but Not performed: EKG: no ekg. Care significantly affected by the following chronic conditions: Diabetes, Hypertension, Congestive Heart Failure, pm. Counseling: I had a detailed discussion with the patient and/or guardian regarding the historical points, exam findings, and any diagnostic results supporting the discharge/admit diagnosis, lab results, the need for outpatient follow up, for definitive care, an ENT specialist. 08/20 15:49 Order name: CBC with Diff [facility] 08/20 15:49 Order name: Comprehensive Metabolic Panel; Complete Time: 18:18 [facility] 08/20 15:49 Order name: PT-INR; Complete Time: 18:18 [facility] 08/20 19:30 Order name: CBC Smear Scan EDMS Administered Medications: 17:22 Drug: NS 0.9% IV 1000 ml IV at 125 ml/hr continuous Route: IV; Rate: 125 ml/hr; Site: tl4 left forearm; Delivery: Primary tubing; 19:33 Follow up: IV Status: Completed infusion; IV Intake: 300ml tl4 19:32 Drug: Ondansetron IVP 4 mg IVP once; over 2 minutes Route: IVP; Infused Over: 2 mins; tl4 Site: left forearm; 20:00 Follow up: Response: No adverse reaction tl4 19:32 Drug: ceFAZolin IVPB 1 grams IVPB once Route: IVPB; Infused Over: 30 mins; Site: left tl4 forearm; Delivery: Primary tubing; 20:00 Follow up: Response: No adverse reaction; IV Status: Completed infusion; IV Intake: [id number] 19:33 Drug: fentaNYL (PF) IVP 50 mcg IVP once Route: IVP; Infused Over: 2 mins; Site: left tl4 forearm; 20:01 Follow up: Response: No adverse reaction; Pain is decreased tl4 Disposition Summary: 08/20/24 18:34 Discharge Ordered Notes: Location: Home rebecca Problem: new rebecca Symptoms: have improved rebecca Condition: Stable rebecca Diagnosis - 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 rebecca Followup: rebecca - With: Private Physician - When: 2 - 3 days - Reason: Recheck today's complaints, Continuance of care, Re-evaluation by your physician Followup: rebecca - With: Shira Davies MD - When: 2 - 3 days - Reason: Recheck today's complaints, Re-evaluation by your physician Discharge Instructions: - Discharge Summary Sheet rebecca - Nosebleed, Adult rebecca - Cool Mist Vaporizer rebecca - Nosebleed, Adult, [id number] [facility] Forms: - Medication Reconciliation Form rebecca - Antibiotic Education rebecca - Prescription Opioid Use rebecca - Patient Portal Instructions [facility] - Leadership Thank You Letter [facility] Prescriptions: - acetaminophen-codeine 300-30 mg Oral tablet - take 1 tablet ORAL route every 4-6 hours; 20 tablet; Refills: 0, Product [facility] Selection Permitted - Cephalexin 500 mg Oral capsule - take 1 capsule ORAL route every 6 hours for 7 days; 28 capsule; Refills: 0, [facility] Product Selection Permitted Signatures: Dispatcher [employer] Ferdinand Woodward MD MD cha Martinez, Clarissa RN RN cm10 Mac Chaudhary RN RN tl4 Corrections: (The following items were deleted from the chart) 15:49 15:49 CBC+H.LAB.BRZ ordered. EDMS EDMS 15:49 15:49 COMPREHENSIVE METABOLIC PANEL+C.LAB.BRZ ordered. EDMS EDMS 15:49 15:49 PROTIME (+INR)+COAG.LAB.BRZ ordered. EDMS EDMS
[2024-08-20] MEDS ORDERED: ONDANSETRON 4 MG/2 ML VIAL ONE (19:15)
[2024-08-20] MEDS ORDERED: CEFAZOLIN SODIUM 1 GM/VIAL ONE (19:16)
[2024-08-20] MEDS ORDERED: FENTANYL CITR 100 MCG/2 ML ONE (19:16)
[2024-08-20] MEDS ORDERED: NA CHLORIDE 0.9% 50 ML ONE (19:17)
[2024-08-20 19:30] LABS: Blood Morphology Comment NOT SEEN (NOT SEEN); Platelet Estimate ADEQ; White Blood Cell Scan OK (OK)
[2024-08-20 21:02] VITALS: BP 139/79; TEMP 98; O2SAT 100
--- NOTE | 2024-08-22 04:27 | CON ---
Date of Consultation: 08/20/2024 Chief Complaint: Right nasal epistaxis, recurrent. History Of Present Illness: The patient is a 69-year-old male with a history of recurrent epistaxis. Most recent episode was on August 16, 2024. He was cauterized in the office by our nurse practitvibha osuna and then absorbable packing was placed into the right nasal cavity. He was eating lunch today, 1 , and he immediately had a profuse intranasal bleed from the right nasal cavity and then he presented to the emergency room for evaluation and then I was consulted. Upon arrival to bedside, th e patient is in no acute distress. His anterior nares were pinched with a device that was in place, but he still had bleeding from the posterior nasal cavity, as he was swallowing the blood. He is cur rently on prasugrel for chronic coronary syndrome and this was prescribed by his medical auditor, Dr. Prasanth mendes. He has held his baby aspirin since August 16. He denies nasal pain, headache, shortness of citlaly ath, chest pain. No other ENT complaints today. Past Medical History/past Surgical History: Pertinent for diabetes mellitus; esophageal carcinoma, s tatus post chemoradiation 20 years ago; myocardial infarction; cardiac pacemaker in situ; cholecystec matt; history of tonsillectomy; stented coronary artery; hernia x3. Medications: Entresto, Farxiga, prasugrel, Januvia, allopurinol, carvedilol, cephalexin, esomeprazol e magnesium, ezetimibe, furosemide, potassium chloride, rosuvastatin, mupirocin 2% ointment. Allergies: NO KNOWN DRUG ALLERGIES. Social History: Former smoker, quit in 1997. Social alcohol. No illicit drugs. Family History: Positive for hypertension, diabetes mellitus, myocardial infarction, kidney disease, and stroke. Review of Systems: Head: Negative for headache, head trauma. Eyes: Negative for eye drainage, blurred or double vision. Ears: Negative for ear drainage or pain or hearing loss. Nose: Positive for right nasal cavity bleeding and congestion. Negative for rhinorrhea, exudate. Oral Cavity: Positive for posterior oropharynx postnasal bleeding. Negative for sore throat, cough. Neck: Negative for neck mass, lymphadenopathy, or thyromegaly. Physical Examination: Vital Signs: Stable. Patient is awake, alert, and oriented to person, place, and time. Head: Atraumatic, normocephalic. Eyes: PERRLA/EOMI. Ears: Deferred. Nose: The nasal pincher was removed and I did not detect any anterior bleeding. My suspicion is the nosebleed was more posterior. Left nasal cavity is intact. No evidence of acute bleeding or blood clots. Oral Cavity: Positive for posterior oropharynx blood clots and bright red blood. Neck: Supple. Trachea midline. No lymphadenopathy or thyromegaly palpated. After obtaining consent, the patient was placed into a sitting position and I inserted an Epistax bal loon catheter into the right nasal cavity. The posterior balloon was inflated with saline 13 mL and the anterior balloon was inflated with 7 mL of saline. A mustache dressing was placed. He tolerated the procedure well and was given IV pain medication. Diagnosis: Acute recurrent epistaxis, right nasal cavity, status post control of subsequent nasal he morrhage posterior with posterior nasal packs and/or cautery, any method, CPT code 93275. Recommendations: 1.Recommend he hold all blood thinners and to contact his medical auditor with this information. 2.He is to follow up in 3 days for balloon catheter removal. 3.Continue cephalexin t.i.d. and narcotic pain medicine was prescribed per Dr. Ann. ADAN/DEMI Voice ID: [id number] Report ID: [id number]
== END 2024-08-20 20:08 | disposition home or self-care (01) ==
LOC: ER 15:30
DX: R04.0 Epistaxis (principal); Z79.01 Long term (current) use of anticoagulants; I50.9 Heart failure, unspecified; E11.9 Type 2 diabetes mellitus without complications; I10 Essential (primary) hypertension; Z95.0 Presence of cardiac pacemaker
CPT/HCPCS: 96365; 96361; 85025; 36415; 85610; 80053; 96375; 99284; 30906; J3010; J2405; J7030; J0690

== ENCOUNTER 2024-08-25 06:26 | Emergency (ER) | payer OTHER ==
--- NOTE | 2024-08-25 07:40 | ER ---
Nurse's Notes [facility] Name: Musa Hui Age: 69 yrs Sex: Male : 1955 Arrival Date: 08/25/2024 Time: 06:26 Bed 15 Private MD: Diagnosis: Encounter for removal of right nasal balloon, encounter for reevaluation of epistaxis Presentation: 08/25 06:36 Chief complaint: Patient states: ON TUESDAY I HAD A NOSE BALLOON INFLATED DUE TO NOSE ha1 BLEED AND ON TUESDAY THE BALLOON GOT DEFLATED BUT NOW I FEEL THAT BLOOD IS OOZING AND KEEP ON SWALLOWING IT . I AM WONDERING IF IT IS NORMAL. 06:36 Coronavirus screen: Vaccine status: Patient reports receiving the 2nd dose of the covid ha1 vaccine. [employer]. Ebola Screen: No symptoms or risks identified at this time. 06:36 Method Of Arrival: Ambulatory ha1 06:43 Initial Sepsis Screen: Does the patient meet any 2 criteria? No. Patient's initial ha1 sepsis screen is negative. Does the patient have a suspected source of infection? No. Patient's initial sepsis screen is negative. Risk Assessment: Do you want to hurt yourself or someone else? Patient reports no desire to harm self or others. Onset of symptoms was August 20, 2024. 06:43 Acuity: [place] 4 ha1 Historical: - Allergies: 06:39 No Known Allergies; cp4 - PMHx: 06:39 Congestive heart failure; Gastric Reflux; diabetes mellitus; Gout; Hypothyroidism; cp4 Pacemaker; stents; - PSHx: 06:39 hernia repair; cp4 - Immunization history:: Adult Immunizations up to date. - Infectious Disease History:: Denies. - Family history:: not pertinent. - Social history:: Smoking status: Patient denies any tobacco usage or history of. Screenin:39 [facility] ED Fall Risk Assessment (Adult) History of falling in the last 3 months, cp4 including since admission No falls in past 3 months (0 pts) Confusion or Disorientation No (0 pts) Intoxicated or Sedated No (0 pts) Impaired Gait No (0 pts) Mobility Assist Device Used No (0 pt) Altered Elimination No (0 pt) Score/Fall Risk Level 0 - 2 = Low Risk Oriented to surroundings, Maintained a safe environment, Assessed \T\ reinforced patient's understanding of fall precautions, Hourly rounding (assess needs \T\ fall precautionary measures) done. Abuse screen: Denies threats or abuse. Nutritional screening: No deficits noted. Tuberculosis screening: No symptoms or risk factors identified. Assessment: 06:37 General: Appears in no apparent distress. uncomfortable, Behavior is calm, cooperative, cp4 appropriate for age. Pain: Denies pain. Neuro: Level of Consciousness is awake, alert, obeys commands, Oriented to person, place, time, situation. Cardiovascular: Patient's skin is warm and dry. Respiratory: Airway is patent Respiratory effort is even, unlabored. GI: No signs and/or symptoms were reported involving the gastrointestinal system. : No signs and/or symptoms were reported regarding the genitourinary system. EENT: Reports oozing down the back of his throat.. Derm: No signs and/or symptoms reported regarding the dermatologic system. Musculoskeletal: No signs and/or symptoms reported regarding the musculoskeletal system. Vital Signs: 06:43 BP 149 / 79; Pulse 102; Resp 18 S; Temp 97.6(T); Pulse Ox 98% on R/A; Weight 97.52 kg; ha1 Height 6 ft. 3 in. ; 06:43 Body Mass Index 26.87 (97.52 kg, 190.5 cm) ha1 [place] Coma Score: 06:54 Eye Response: spontaneous(4). Motor Response: obeys commands(6). Verbal Response: sp4 oriented(5). Total: 15. ED Course: 06:27 Patient arrived in ED. jj6 06:36 Arm band placed on right wrist. ha1 06:37 Anika Kingsley is Primary Nurse. cp4 06:39 Bed in low position. Call light in reach. Side rails up X 1. Provided Education on: cp4 nosebleed. 06:39 No provider procedures requiring assistance completed. Patient did not have IV access cp4 during this emergency room visit. 06:40 Zain Wren MD is Attending Physician. sp4 06:45 Triage completed. ha1 07:38 Shira Davies MD is Referral Physician. sp4 Administered Medications: No medications were administered Medication: 06:39 VIS not applicable for this client. cp4 Outcome: 07:39 Discharge ordered by . sp4 08:05 Discharged to home ambulatory, with significant other, ph 08:05 Condition: good 08:05 Discharge instructions given to patient, Instructed on discharge instructions, follow up and referral plans. Demonstrated understanding of instructions, follow-up care, 08:05 Patient left the ED. ph Signatures: Kathia Drew RN RN ph Shahla Devine jj6 Pretty Malagon RN RN ha1 Zain Wren MD MD sp4 Anika Kingsley cp4 Corrections: (The following items were deleted from the chart) 06:40 06:39 Allergies: Aspirin; cp4 cp4
--- NOTE | 2024-08-25 07:40 | EDPHYS ---
Physician Documentation [facility] Name: Musa Hui Age: 69 yrs Sex: Male : 1955 Arrival Date: 08/25/2024 Time: 06:26 Bed 15 Private MD: ED Physician Zain Wren HPI: 08/25 06:41 This 69 yrs old Male presents to ER via Unassigned with complaints of Post sp4 Surgical Bleeding. 06:52 69-year-old male presents with a right nasal balloon , this patient states he had sp4 epistaxis and the balloon was placed in by ENT Dr. Davies . 06:54 The specialty balloon was placed on the 23 August [address] Davies. . sp4 Historical: - Allergies: 06:39 No Known Allergies; cp4 - PMHx: 06:39 Congestive heart failure; Gastric Reflux; diabetes mellitus; Gout; Hypothyroidism; cp4 Pacemaker; stents; - PSHx: 06:39 hernia repair; cp4 - Immunization history:: Adult Immunizations up to date. - Infectious Disease History:: Denies. - Family history:: not pertinent. - Social history:: Smoking status: Patient denies any tobacco usage or history of. ROS: 06:54 Constitutional: Negative for fever, chills, and weight loss, positive for right nasal sp4 discomfort and balloon 06:54 All other systems are negative, Exam: 06:54 Constitutional: This is a well developed, well nourished patient who is awake, alert, sp4 and in no acute distress. Head/Face: Normocephalic, atraumatic. Eyes: Pupils equal round and reactive to light, extra-ocular motions intact. Lids and lashes normal. Conjunctiva and sclera are not injected. Cornea within normal limits. Periorbital areas with no swelling, redness, or edema. ENT: Tympanic membranes are normal and external auditory canals are clear. Oropharynx with no redness, swelling, or masses, exudates, or evidence of obstruction, uvula midline. Mucous membranes moist. There is specialty balloon with 2 ports in the right nostril. There is bloody to purulent discharge from the right nostril . Balloon catheter was removed from the right nostril. Neck: Trachea midline, no thyromegaly or masses palpated, and no cervical lymphadenopathy. Supple, full range of motion without nuchal rigidity, or vertebral point tenderness. Chest/axilla: Normal chest wall appearance and motion. Nontender with no deformity. No lesions are appreciated. Cardiovascular: Regular rate and rhythm with a normal S1 and S2. No gallops, murmurs, or rubs. Normal PMI, no JVD. No pulse deficits. Respiratory: Lungs have equal breath sounds bilaterally, clear to auscultation and percussion. No rales, rhonchi or wheezes noted. No increased work of breathing, no retractions or nasal flaring. Abdomen/GI: Soft, with normal bowel sounds. No distension or tympany. No guarding or rebound. No evidence of tenderness throughout. Back: No spinal tenderness. No costovertebral tenderness. Skin: Warm, dry with normal turgor. Normal color with no rashes, no lesions, and no evidence of cellulitis. MS/ Extremity: Pulses equal, no cyanosis. Neurovascular intact. Full, normal range of motion. Neuro: Awake and alert, GCS 15, oriented to person, place, time, and situation. Cranial nerves II-XII grossly intact. Motor strength 5/5 in all extremities. Sensory grossly intact. Psych: Awake, alert, with orientation to person, place and time. Behavior, mood, and affect are within normal limits Vital Signs: 06:43 BP 149 / 79; Pulse 102; Resp 18 S; Temp 97.6(T); Pulse Ox 98% on R/A; Weight 97.52 kg; ha1 Height 6 ft. 3 in. ; 06:43 Body Mass Index 26.87 (97.52 kg, 190.5 cm) ha1 [place] Coma Score: 06:54 Eye Response: spontaneous(4). Motor Response: obeys commands(6). Verbal Response: sp4 oriented(5). Total: 15. MDM: 07:00 Patient medically screened. sp4 07:40 Differential diagnosis: foreign body - resolved, foreign body - unresolved, nasal sp4 fracture, trauma, sinusitis, epistaxis r/t trauma, spontaneous epistaxis. Data reviewed: vital signs, nurses notes. ED course: Right nasal balloon was removed and patient remains without bleeding. Patient advised to see ENT on Tuesday as scheduled. Nasal precautions provided. . Administered Medications: No medications were administered Disposition Summary: 08/25/24 07:39 Discharge Ordered Notes: Do NOT blow your nose and Do NOT use nasal saline.

Location: Home sp4 Problem: new sp4 Symptoms: have improved sp4 Condition: Stable sp4 Diagnosis - Encounter for removal of right nasal balloon, encounter for reevaluation of sp4 epistaxis Followup: sp4 - With: Shira Davies MD - When: 1 - 2 days - Reason: Recheck today's complaints Discharge Instructions: - Discharge Summary Sheet sp4 - Nosebleed, Adult, [id number] sp4 Forms: - Patient Portal Instructions sp4 Signatures: Zain Wren MD MD sp4 Anika Kingsley cp4 Corrections: (The following items were deleted from the chart) 06:40 06:39 Allergies: Aspirin; cp4 cp4
[2024-08-25 10:33] VITALS: BP 149/79; TEMP 97.6; O2SAT 98
== END 2024-08-25 08:05 | disposition home or self-care (01) ==
LOC: ER 06:26
DX: Z48.00 Encounter for change or removal of nonsurgical wound dressing (principal); R04.0 Epistaxis
CPT/HCPCS: 99282